=== PATIENT | female | born 1970 | race Caucasian/White ===

== ENCOUNTER 2022-04-22 15:37 | Outpatient (CLI) | payer MEDICAID, SELFPAY | END 2022-04-22 15:38 | disposition home or self-care (01) | LOC: LONREF 15:38 | PROVIDERS: PCP Family Medicine; Visit Provider Family Medicine | DX: Z13.29 Encounter for screening for other suspected endocrine disorder (principal) | CPT/HCPCS: 84443 ==

== ENCOUNTER 2023-02-08 10:05 | Outpatient (CLI) | payer BC, SELFPAY ==
--- NOTE | 2023-02-08 10:15 | CRLHL7_ITS ---
For Patients: As a result of the Century Cures Act, medical imaging exams and procedure reports are released immediately into your electronic medical record. You may view this report before your referring provider. If you have questions, please contact your health care provider. BILATERAL SCREENING MAMMOGRAM WITH COMPUTER-AIDED DETECTION AND TOMOSYNTHESIS TECHNIQUE: CC and MLO views were obtained. These mammographic images have been obtained using full-field digital technique. These mammographic images were interpreted with the benefit of computer-aided detection. Breast Tomosynthesis was used in this interpretation. COMPARISON FILM: 03/10/21, 09/03/19, 12/26/17. FINDINGS: There are scattered areas of fibroglandular density IMPRESSION: There is no radiographic evidence for malignancy. ASSESSMENT: BI-RADS Category 1: Negative RECOMMENDATION: Routine screening mammogram in 1 year. A lay language report of this examination will be provided to the patient. Robin Phoenix M.D. Diagnostic Radiologist [email or web address] ARSEN/Dictated by: Robin Phoenix MD @ 02/09/2023 12:14:00 PM (Electronically Signed)
== END 2023-02-08 10:06 | disposition home or self-care (01) ==
LOC: MAMMO 10:11
PROVIDERS: PCP Family Medicine; Visit Provider Obstetrics & Gynecology
DX: Z12.31 Encounter for screening mammogram for malignant neoplasm of breast (principal)
CPT/HCPCS: 77063; 77067

== ENCOUNTER 2023-02-20 11:23 | Outpatient (CLI) | payer BC, SELFPAY | END 2023-02-20 11:24 | disposition home or self-care (01) | PROVIDERS: PCP Family Medicine; Visit Provider Family Medicine | DX: Z00.00 Encounter for general adult medical examination without abnormal findings (principal); E55.9 Vitamin D deficiency, unspecified; E78.5 Hyperlipidemia, unspecified; R53.83 Other fatigue; R30.0 Dysuria; Z13.6 Encounter for screening for cardiovascular disorders; Z13.1 Encounter for screening for diabetes mellitus | CPT/HCPCS: 80053; 80061; 82306; 84443; 85025 ==

== ENCOUNTER 2023-08-20 22:02 | Emergency (ER) | payer BC, SELFPAY ==
[2023-08-20 22:11] VITALS: BP 150/101; PULSE 103; RESP 18; TEMP 36.9; O2SAT 97; BMI 30.7
--- NOTE | 2023-08-20 22:14 | ED.GENADULT ---
HPI - General Adult General Time Seen by Provider: 22:14 Date Seen: 08/20/23 Chief complaint: Cough Stated complaint: pneumonia Time Seen by Provider: 08/20/23 22:05 Source: patient, RN notes reviewed and old records reviewed Mode of arrival: ambulatory Limitations: no limitations History of Present Illness HPI narrative: 53-year-old female with history of allergic rhinitis, chronic pain, and asthma who comes in today with a cough. Started with allergy symptoms for the last week now with increasing chest tightness. No fever chills. Has been using albuterol every 4 hours, also [id number] decongestants. Does have some shortness of breath, no chest pain, no abdominal pain, no lower extremity swelling. Does have nasal congestion and headache, dry scratchy throat. Related Data Home Medications Medication Instructions Recorded Confirmed albuterol sulfate 2.5 mg/3 mL 2.5 mg inhalation Q4H PRN 01/17/22 08/18/23 (0.083 %) solution for nebulization aspirin 81 mg tablet,delayed 81 mg PO QDAY 01/17/22 08/18/23 release (Adult Aspirin Regimen) fluticasone propionate 50 2 spray intranasal QDAY 01/17/22 08/18/23 mcg/actuation nasal spray,suspension rizatriptan 10 mg tablet 10 mg PO .PRN 01/17/22 08/18/23 Previous Rx's Medication Instructions Recorded albuterol sulfate 90 mcg/actuation 2 puff inhalation Q4H PRN 11/21/22 aerosol inhaler (Ventolin HFA) shortness of breath or wheezing #8.5 grams atorvastatin 10 mg tablet 10 mg PO QHS #90 tabs 05/08/23 venlafaxine 150 mg 150 mg PO QDAY #90 caps 07/31/23 capsule,extended release 24 hr semaglutide (weight loss) 1 mg/0.5 1 mg (0.5 mL) subcut QWEEK #2 mL 08/15/23 mL subcutaneous pen injector dextroamphetamine-amphetamine 20 20 mg PO QDAY #30 tabs 08/18/23 mg tablet dextroamphetamine-amphetamine 20 20 mg PO QDAY #30 tabs 08/18/23 mg tablet (Adderall) dextroamphetamine-amphetamine 20 20 mg PO QDAY #30 tabs 08/18/23 mg tablet (Adderall) Allergies Allergy/AdvReac Type Severity Reaction Status Date / Time hydromorphone [From Dilaudid] Allergy Severe Vomiting Verified 08/18/23 14:32 methocarbamol Allergy Severe tongue Verified 08/18/23 14:32 swelling oxycodone Allergy Severe tongue Verified 08/18/23 14:32 swelling Sulfa (Sulfonamide Allergy Mild Hives Verified 08/18/23 14:32 Antibiotics) Review of Systems Status of ROS: Reports: 10 or more systems reviewed and unremarkable except as noted in History and below [facility] Medical History (Updated 08/20/23 @ 23:19 by Kai Funes MD) 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 - Other obesity due to excess calories (ICD-10) Mild intermittent asthma ?J45.20 - Mild intermittent asthma, uncomplicated (ICD-10) Calculus of kidney (02/03/13) ?N20.0 - Calculus of kidney (ICD-10) ADHD, 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 - Attention-deficit hyperactivity disorder, predominantly inattentive type (ICD-10) Allergic rhinitis ?J30.9 - Allergic rhinitis, unspecified (ICD-10) Hyperlipidemia ?E78.5 - Hyperlipidemia, unspecified (ICD-10) Hearing loss in left ear ?H91.92 - Unspecified hearing loss, left ear (ICD-10) Vitamin D deficiency ?E55.9 - Vitamin D deficiency, unspecified (ICD-10) Temporomandibular joint disorder ?M26.609 - Unspecified temporomandibular joint disorder, unspecified side (ICD-10) Pulmonary embolism (11/14/12) ?I26.99 - Other pulmonary embolism without acute cor pulmonale (ICD-10) Chronic fatigue syndrome ?G93.32 - Myalgic encephalomyelitis/chronic fatigue syndrome (ICD-10) Cerebral aneurysm ?I67.1 - Cerebral aneurysm, nonruptured (ICD-10) Anxiety with depression ?F41.8 - Other specified anxiety disorders (ICD-10) Goiter (02/19/09) ?E04.9 - Nontoxic goiter, unspecified (ICD-10) Surgical History S/P nasal polypectomy ?Z98.890 - Other specified postprocedural states (ICD-10) H/O rectocele repair ?Z98.890 - Other specified postprocedural states (ICD-10) S/P laparoscopic hysterectomy ?Z90.710 - Acquired absence of both cervix and uterus (ICD-10) S/P Milagro fundoplication (without gastrostomy tube) procedure ?Z98.890 - Other specified postprocedural states (ICD-10) History of hemorrhoidectomy (12/07/10) ?Z98.890 - Other specified postprocedural states (ICD-10) History of endometrial ablation (02/19/09) ?Z98.890 - Other specified postprocedural states (ICD-10) History of cholecystectomy (02/19/09) ?Z90.49 - Acquired absence of other specified parts of digestive tract (ICD-10) Family History (Updated 02/27/23 @ 00:28 by Robin Long MD) Mother Diabetes Maternal Grandfather Diabetes Uncle Diabetes Social History (Updated 02/20/23 @ 10:35 by Dahlia Moses ~ [facility], [facility]) What is your current living situation?: I presently have a place to live Problems where you live: no known problems In the past 12 months, utilities in danger of being shut off: no In past 12 months, lack of transportation kept you from medical appts, meetings, work, or getting things needed for daily living: no In the past 12 mos, have been you worried that your food would run out before you had money to buy more?: sometimes true In the past 12 mos, the food you bought just didn't last and you didn't have money to buy more?: never true Smoking Status: Former smoker Do you use any of these nicotine containing products: None Second hand tobacco smoke exposure: No How often do you have a drink containing alcohol: monthly or less How often do you have six or more drinks on one occasion: Never AUDIT-C Alcohol total score: 1 Non-prescribed substance use: denies use How often does anyone, including family, friends and others, physically hurt you: never How often does anyone, including family, friends and others, insult or talk down to you: fairly often How often does anyone, including family, friends and others, threaten you with harm: never How often does anyone, including family, friends and others, scream or curse at you: fairly often Little interest or pleasure in doing things: not at all Feeling down, depressed, or hopeless: not at all service: No Exam Narrative: Exam Narrative: General: Well-developed and well-nourished, no acute distress Head: Atraumatic and normocephalic Eyes: Pupils are equal reactive, extraocular motions intact, conjunctiva clear ENT: External nose and ears are normal, posterior pharynx without erythema or exudate Neck: No midline cervical tenderness, full spontaneous range of motion the neck, trachea midline, no adenopathy Heart: Regular rate and rhythm no murmurs or thrills Lungs: Clear to auscultation bilaterally without wheezes or crackles Abdomen: Soft, nontender, nondistended with active bowel sounds Musculoskeletal: No tenderness, deformity, or edema Neurologic: Awake, alert, and oriented x3, no gross focal neurologic deficits, cranial nerves intact as tested Psych: Mood and affect are appropriate Skin: No rashes Const: Vital Signs, click to edit/add: Vital Signs - 24 hr 08/20/23 22:11 08/20/23 23:23 Temperature 98.5 F 98.5 F Pulse Rate [Pulse Oximeter] 103 H 96 Respiratory Rate 18 18 Blood Pressure [Le ft Upper Arm] 150/101 H 138/86 Pulse Oximetry 97 99 Oxygen Delivery Me thod Room Air Room Air Course Course ED Course: Patient seen examined, prior records reviewed. Patient with history of asthma and pulmonary embolism, with upper respiratory symptoms and ongoing cough and chest tightness. On exam here, no hypoxia, borderline tachycardia, normal oxygen saturation. Trace coarse bronchial wheezes predominantly on the left, no crackles. Symptoms are most consistent with allergy verses viral upper respiratory infection with asthma exacerbation. Pulmonary embolism we considered but no pleuritic chest pain, lower extremity swelling, prior pulmonary embolism was related to hormone therapy which patient is not currently taking. Chest x-ray ordered along with DuoNeb. Reevaluation(s) Time of Reevaluation #1: 23:17 Reevaluation #1: Labs ordered and independently interpreted by me with negative COVID , negative influenza, negative RSV. Chest x-ray independently interpreted by me negative for acute findings. Time of Reevaluation #2: 23:19 Reevaluation #2: Reviewed radiology interpretation chest x-ray is mild cardiomegaly. Patient has no orthopnea, lower extremity swelling, crackles on exam, or evidence of pulmonary edema, congestive heart failure unlikely because patient's symptoms today. With nasal congestion, sore throat, cough, chest tightness and history of asthma, symptoms most likely represent viral process. Patient updated with findings and plan. Minimal improvement after nebulizer treatment, lungs reexamined and still no wheezing or crackles. Patient is stable for discharge. Vital Signs Vital signs: Initial Vital Signs Temperature 98.5 F 08/20/23 22:11 Temperature Source Temporal Artery Scan 08/20/23 22:11 Pulse Rate 103 H 08/20/23 22:11 Pulse Rhythm Regular 08/20/23 22:11 Respiratory Rate 18 08/20/23 22:11 Blood Pressure 150/101 H 08/20/23 22:11 Blood Pressure Mean 117 H 08/20/23 22:11 Blood Pressure Position Sitting 08/20/23 22:11 Pulse Oximetry 97 08/20/23 22:11 Oxygen Delivery Method Room Air 08/20/23 22:11 Vital Signs Temperature 98.5 F 08/20/23 22:11 Pulse Rate 103 H 08/20/23 22:11 Respiratory Rate 18 08/20/23 22:11 Blood Pressure 150/101 H 08/20/23 22:11 Pulse Oximetry 97 08/20/23 22:11 Oxygen Delivery Method Room Air 08/20/23 22:11 Temperature 98.5 F 08/20/23 23:23 Pulse Rate 96 08/20/23 23:23 Respiratory Rate 18 08/20/23 23:23 Blood Pressure 138/86 08/20/23 23:23 Pulse Oximetry 99 08/20/23 23:23 Oxygen Delivery Method Room Air 08/20/23 23:23 Medications Administered Medications: Generic Name Dose Route Start Last Admin Trade Name Freq PRN Reason Stop Dose Admin Albuterol/Ipratropium 1 neb 08/20/23 22:39 08/20/23 22:45 Iprat-Albut 0.5-2.5 Mg/3 Ml Neb 08/20/23 22:40 1 neb ONCE ONE Administration Medical Decision Making Medical Records Medical records reviewed: Yes I reviewed the patient's medical records Lab Data Lab results reviewed: Yes I reviewed the patient's lab results Labs: Lab Results 08/20/23 Range/Units 22:25 SARS-CoV-2 (PCR) Negative SARS-CoV-2 (Negative) Influenza Type A (PCR) Negative PCR FLU A (Negative) Influenza Type B (PCR) Negative PCR FLU B (Negative) RSV (PCR) Negative PCR RSV (Negative) Discharge Plan Discharge Clinical Impression: Acute upper respiratory infection Patient Disposition: Home, Self-Care Condition: Stable Instructions: Upper Respiratory Infection (DC) Activity Level: Activity as Tolerated Discharge Diet: Regular Prescriptions: No Action dextroamphetamine-amphetamine [Adderall] 20 mg tablet 20 mg PO QDAY Qty: 30 0RF dextroamphetamine-amphetamine [Adderall] 20 mg tablet 20 mg PO QDAY Qty: 30 0RF dextroamphetamine-amphetamine 20 mg tablet 20 mg PO QDAY Qty: 30 0RF albuterol sulfate [Ventolin HFA] 90 mcg/actuation HFA aerosol inhaler 2 puff inhalation Q4H PRN (Reason: shortness of breath or wheezing) Qty: 8.5 0RF aspirin [Adult Aspirin Regimen] 81 mg tablet,delayed release (DR/EC) 81 mg PO QDAY fluticasone propionate 50 mcg/actuation spray,suspension 2 spray intranasal QDAY Rx Instructions: administer into each nostril rizatriptan 10 mg tablet 10 mg PO .PRN Rx Instructions: as a single dose albuterol sulfate 2.5 mg /3 mL (0.083 %) solution for nebulization 2.5 mg inhalation Q4H PRN atorvastatin 10 mg tablet 10 mg PO QHS Qty: 90 2RF venlafaxine 150 mg capsule,extended release 24hr 150 mg PO QDAY Qty: 90 0RF semaglutide (weight loss) 1 mg/0.5 mL pen injector 1 mg subcut QWEEK Qty: 2 0RF Follow Up/Referrals: Robin Long MD [Primary Care Provider] - Stand Alone Forms: [employer] Info Instructions
--- NOTE | 2023-08-20 22:39 | XR_ITS ---
Patient: FLACO ROB Facility:?[facility] Patient ID:?[id number] Site Patient ID:?[id number]. Site :?[id number] Study:?XRay-Chest 2 VIEW-08/20/2023 11:03:46 PM Ordering Physician:NEL Final Report: INDICATION: Cough, dyspnea TECHNIQUE: Chest radiograph 2 views COMPARISON: None FINDINGS: Mediastinum: The mediastinum is normal in appearance. Mild cardiomegaly is present. Lung: Both lungs are unremarkable in appearance. No sign of pleural effusion seen. No pneumothorax is identified. Bone and Soft tissue: Unremarkable for age. IMPRESSION: 1. Mild cardiomegaly is present. Dictated by Soham Leal MD @ 08/20/2023 11:18:58 PM Dictated by: Soham Leal MD @ 08/20/2023 23:19:03 Signed by:?Soham Leal MD @08/20/2023 11:19:03 PM (Electronic Signature)
[2023-08-20] MEDS: IPRAT-ALBUT 0.5-2.5 MG/3 ML NEB 1 NEB IH (22:45)
[2023-08-20 23:11] LABS: PCR FLU A Negative PCR FLU A (Negative); PCR FLU B Negative PCR FLU B (Negative); PCR RSV Negative PCR RSV (Negative); SARS PCR* Negative SARS-CoV-2 (Negative)
[2023-08-20 23:23] VITALS: BP 138/86; PULSE 96; RESP 18; TEMP 36.9; O2SAT 99
--- NOTE | 2023-08-20 23:24 | PC.NURSE ---
Pt states she feels as though neb treatment didn't help very much. still feels tight.
== END 2023-08-20 23:41 | disposition home or self-care (01) ==
PROVIDERS: Emergency Provider Family Medicine; PCP Family Medicine
DX: J06.9 Acute upper respiratory infection, unspecified (principal)
CPT/HCPCS: 71046; 87631; 94640; 99284

== ENCOUNTER 2023-09-06 12:54 | Outpatient (CLI) | payer BC, SELFPAY ==
--- NOTE | 2023-09-06 13:00 | CRLHL7_ITS ---
For Patients: As a result of the Century Cures Act, medical imaging exams and procedure reports are released immediately into your electronic medical record. You may view this report before your referring provider. If you have questions, please contact your health care provider. INDICATION: Bilateral hearing loss. COMPARISON: 01/14/2021. TECHNIQUE: Multiplanar T1, T2, FLAIR and diffusion-weighted imaging. Post gadolinium T1 weighted sequences. Additional pre and post given sequences of the skullbase and IAC`s. FINDINGS: Normal brain parenchymal morphology. Stable few scattered patchy foci of T2/FLAIR signal hyperintensity within the white matter of both cerebral hemispheres which likely represents chronic deep white matter small ischemic changes or sequela migraine headache. No intracranial hemorrhage. No abnormal ventricular dilatation. Intracranial vascular flow voids preserved. No mass effect or midline shift. No restricted diffusion to suggest acute ischemia. No abnormal enhancement or enhancing lesions within the brain parenchyma. Dedicated sequence of the skullbase and IAC`s demonstrates normal course of cranial nerves 7 and 8 from the root entry zone to the fundus of the IAC`s. Normal fluid signal within the cochlea and vestibule. Normal root entry zone of the bilateral trigeminal nerves. No abnormal mass or enhancement within cerebellopontine angles or IAC`s. Bilateral orbits are unremarkable. Normal appearing sella. Visualized mastoid air cells are unremarkable. Mucous retention cyst within the bilateral mastoid sinuses. Remaining visualized paranasal sinuses are unremarkable. IMPRESSION: 1. No acute intracranial abnormality 2. Normal brain parenchymal morphology. Scattered patchy T2/FLAIR signal hyperintensity within the white matter of both cerebral hemispheres which likely represents chronic deep white matter small vessel ischemic changes or sequela of migraine headache. 3. No abnormal enhancement or enhancing lesions 4. Dedicated sequences of the skull base nice ease demonstrates normal course of the cranial nerves. No abnormal mass or enhancement Dictated by Charan Jean MD @ 09/07/2023 1:05:36 PM (Electronically Signed)
== END 2023-09-06 12:55 | disposition home or self-care (01) ==
LOC: MRI 12:55
PROVIDERS: PCP Family Medicine; Visit Provider Otolaryngology
DX: H91.8X3 Other specified hearing loss, bilateral (principal)
CPT/HCPCS: 70553; A9575

== ENCOUNTER 2023-10-06 15:57 | Outpatient (CLI) | payer BC, SELFPAY ==
--- NOTE | 2023-10-06 16:00 | CRLHL7_ITS ---
For Patients: As a result of the Century Cures Act, medical imaging exams and procedure reports are released immediately into your electronic medical record. You may view this report before your referring provider. If you have questions, please contact your health care provider. Indication: ANOSMIA Technique: Performed without IV contrast Comparison: MRI 09/06/2023 Findings: Frontal sinuses: Clear. Ethmoid sinuses: Clear. Maxillary sinuses: Mucous retention cysts within both maxillary sinuses measuring up to 3 cm. Mild mucosal thickening also present on the right. Maxillary sinus drainage pathways are patent. Sphenoid sinuses: Both sphenoethmoidal recesses are patent. Mild mucosal thickening within the left sphenoid sinus along with a tiny mucous retention cyst. Nasal Cavity: Slight anterior leftward curvature of the nasal septum. Paradoxical turns of the middle turbinates noted with tiny jourdan bullosa. No nasal polyps. No TMJ abnormalities identified. The visualized portions of the orbits, intracranial contents and upper soft tissue neck are grossly negative. Impression: 1. Bilateral mucous retention cysts within the maxillary sinuses. No obstruction regarding the maxillary sinus drainage pathways. 2. Mild left sphenoid sinus disease. Please note that all CT scans at this facility use dose modulation, iterative reconstruction, and/or weight-based dosing when appropriate to reduce radiation dose to as low as reasonably achievable. Dictated by Robin Phoenix MD @ 10/09/2023 9:26:41 AM (Electronically Signed)
== END 2023-10-06 15:58 | disposition home or self-care (01) ==
LOC: CT 15:57
PROVIDERS: PCP Family Medicine; Visit Provider Otolaryngology
DX: R43.0 Anosmia (principal); J32.0 Chronic maxillary sinusitis
CPT/HCPCS: 70486

== ENCOUNTER 2024-07-23 15:43 | Emergency (ER) | payer SELFPAY ==
--- OUTSIDE RECORDS SUMMARY | 2024-07-23 15:45 | XMS_ITS | Clinical Summary ---
Author Organization [facility] Address [address] [place] [phone] Phone Care Team Providers Care Mobile Web Application Developer Name Role Phone Emre Ross MD Primary Care Provider [phone] Allergies Active Allergy Reactions Criticality Noted Date Comments Hydromorphone Vomiting High 12/18/2019 Methocarbamol Swelling High 12/18/2019 Tongue swelling Oxycodone Psychiatric 12/18/2019 Psychotic episode Sulfa Antibiotics Hives 12/18/2019 Medications albuterol (2.5 MG/3ML) 0.083% nebulizer solution Take 2.5 mg by nebulization every 4 (four) hours if needed for wheezing Active fluticasone (FLONASE) 50 MCG/ACT nasal spray Administer 1 spray into each nostril 1 (one) time each day Shake gently. Before first use, prime pump. After use, clean tip and replace cap. Active rizatriptan (MAXALT) 10 MG tablet Take 10 mg by mouth twice a day May repeat in 2 hours if unresolved. Do not exceed 30 mg in 24 hours. Active venlafaxine XR (EFFEXOR-XR) 150 MG 24 hr capsule Take 150 mg by mouth 1 (one) time each day Active amphetamine-dex troamphetamine (ADDERALL) 10 MG tablet Take 10 mg by mouth 1 (one) time each day Active Cholecalciferol (VITAMIN D3) 125 MCG (5000 UT) tablet Take 1 tablet by mouth 1 (one) time each day Active clonazePAM (KlonoPIN) 1 MG tablet Take 1 mg by mouth 1 (one) time each day Active Active Problems No known active problems Social History Tobacco Use Types Packs/Day Years Used Date Smoking Tobacco: Former Cigarettes Q uit: 1995 Alcohol Use Standard Drinks/Week Comments Yes 0 (1 standard drink = 0.6 oz pur e alcohol) Comments Unknown Sex and Gender Information Value Date Recorded Sex Assigned at Female 04/06/2021 4:49 AM MST Legal Sex Female 8:12 AM MDT Gender Identity Female 04/06/2021 4:49 AM MST Sexual Orientation Straight 04/06/2021 4: 49 AM MST Last Filed Vital Signs Vital Sign Reading Time Taken Comments Blood Pressure 145/93 12/19/2019 10:25 AM CDT Pulse 68 12/19/2019 10:25 AM CDT Temperature 36.4 C (97.6 F) 12/19/2019 10:25 AM CDT Respiratory Rate - - Oxygen Saturation - - Inhaled Oxygen Concentration - - Weight 84.1 kg (185 lb 6.4 oz) 12/19/2019 10:25 AM CDT Height 167.6 cm (5' 6) 12/19/2019 10:25 AM CDT Body Mass Index 29.92 12/19/2019 10:25 AM CDT Plan of Treatment Health Maintenance Due Date Last Done Comments Influenza Vaccine (Season Ended) 2024 Insurance PM [employer] Care Teams Mobile Web Application Developer Relationship Specialty Start Date End Date Emre Ross MD [address] [place] [id number] PCP - General 12/03/19
--- OUTSIDE RECORDS SUMMARY | 2024-07-23 15:45 | XMS_ITS | Clinical Summary ---
Author Organization [facility] Address [address] [place] [id number] Care Team Providers Care Psychodramatist Name Role Phone Emre Ross MD Primary Care Provider [phone] Allergies Active Allergy Reactions Criticality Noted Date Comments Sulfa (Sulfonamide Antibiotics) 06/2004 Medications ACETAMINOPHEN-C ODEINE 300 MG-30 MG ORAL TAB None Entered 0 Active ALBUTEROL INHL NEEDED 0 Activ e ACETAMINOPHEN 325 MG ORAL TAB take 2 tablets by mouth every 4hours as needed for pain ? 0 5 Active PHENAZOPYRIDINE 200 MG ORAL TAB 1 tablet by mouth every 8hr as needed for dysuria ? 0 5 Active tirzepatide (Mounjaro) 5 mg/0.5 mL pen Inject 5 mg subcutaneous once weekly. 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 Gender Identity Female 07/03/2023 4:24 PM CDT Sexual Orientation Not on file Obstetrics History Last Filed Vital Signs Vital Sign Reading Time Taken Comments Blood Pressure 134/89 11/10/2004 9:30 PM CDT Pulse 72 11/10/2004 9:30 PM CDT Temperature 36.1 C (97 F) 11/10/2004 9:30 PM CDT Respiratory Rate 16 11/10/2004 9:30 PM CDT Oxygen Saturation 100% 11/10/2004 9:30 PM CDT Inhaled Oxygen Concentration - - Weight 60.9 kg (134 lb 4.2 oz) 11/10/2004 4:00 P M CDT Height 167 cm (5' 5.75) 11/10/2004 4:00 PM CDT Body Mass Index 21.84 11/10/2004 4:00 PM CDT Plan of Treatment Health Maintenance Due Date Last Done Comments Tdap 1979 Depression screening for age 12+ 1980 HIV for age 15-65 1983 BMI (ht and wt on same day) for age 18+ 1986 Hepatitis C screening for ag e 18-79 1986 Tetanus booster 1988 Colonoscopy through age 75 2013 Lipids for age 45-75 2013 Mammogram for age 45-75 2013 Pneumococcal series for age 50+ (1 of 1 - PCV) 2018 Zoster (shingles) series for age 50+ (1 of 2) 2018 Pap test for age 21-65 10/09/2020 8, 10/09/2017, 04/26/2005, Additional history exists COVID-19 vaccine series ( - 2023- season) 2023 Influenza Vaccine (Season Ended) 2024 Procedures Procedure Name Priority Date/Time Associated Diagnosis Comments MARBLE MACHINE TENDER THIN PREP PAP SCREEN IMAGED Routine 10/09/2017 11:15 AM CDT from Last 3 Months or Most Recently Relevant to Health Maintenance Results * MARBLE MACHINE TENDER THIN PREP PAP SCREEN IMAGED (10/09/2017 11:15 AM CDT) Case Report Gynecologic Cytology Report Case: [id number] Authorizing Provider: Jackie Olivo MD Collected: 10/09/2017 1115 First Screen: Yancy Singh Received: 10/09/2017 1602 Specimen: MARBLE MACHINE TENDER ThinPrep Vial Screening, Cervical/Vaginal 10/19/2017 12:09 PM CDT [facility] INTERPRETATION/ RESULT NEGATIVE FOR INTRAEPITHELIAL LESION OR MALIGNANCY (NIL) (none) 10/19/2017 12:09 PM CDT [facility] at 1209 CDT SPECIMEN ADEQUACY Satisfactory for evaluation Endocervical component present 10/19/2017 12:09 PM CDT [facility] HPV REQUEST HPV and PAP 10/19/2017 12:09 PM CDT [facility] Date of LMP 09/28/2017 10/19/2017 12:09 PM CDT [facility] Last Pap Date 12/19/2011 10/19/2017 12:09 PM CDT [facility] Last Pap Result NIL 8 12:09 PM CDT [facility] Automated Review Successful 10/19/2017 12:09 PM CDT [facility] Comment:Specimen processed s uccessfully by automated crane rigger device, ThinPrep Imaging System, [employer] ANCILLARY TESTING MARBLE MACHINE TENDER HPV Ordered, Please see separate report 10/19/2017 12:09 PM CDT [facility] Note The pap test is a screening technique, not a diagnostic procedure. It is used primarily to screen for squamous cancers and precursor lesions. Published studies have shown that it is subject to both false negative and false positive results. The pap test should not be used as the sole means to diagnose or exclude pre-malignant and malignant lesions. Cytology is screened and interpreted at [facility] - [address], [place] [address] and [facility] - [address]; [place] [address] and [facility] - [address]; [place] [address] and [facility] [address]; [place] [address] 10/19/2017 12:09 PM T [facility] Other (Cervical/Vagina l) 10/09/2017 11:15 AM CDT 10/09/2017 4:02 PM CDT us Jackie Olivo MD PATHOLOGY/CYTOLOGY Final Res ult [facility] [address] [place] [address], from Last 3 Months or Most Recently Relevant to Health Maintenance Insurance [facility] Care Teams Psychodramatist Relationship Specialty Start Date End Date Emre Ross MD [address] [place] [address] PCP - General Family Practice 05/28/20
--- OUTSIDE RECORDS SUMMARY | 2024-07-23 15:45 | XMS_ITS | Clinical Summary ---
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 05/27 Nella BRAVO-Ty Aneurysm of cerebral artery Cerebrovascu lar disease [id number] (SNOMED CT) 05/11 Active 05/11 Abel Briseno MD Cerebrovascular disease Visual changes [id number] (SNOMED CT) 05/11 Active 05/11 Abel Briseno MD Disorder of vision Migraine without aura [id number] (SNOMED CT) 07/03 Active 07/29 Diane Lucas MD Migraine without aura Medications Medication Instructions Start Date Stop Date Generic Name [facility] Provider METAXALONE 800 MG TABS metaxalone [id number] Abel Briseno MD OMEPRAZOLE 20 MG CPDR TK 1 C PO BID omeprazole [id number] Abel Briseno MD GABAPENTIN 300 MG CAPS TK 1 C PO TID gabapentin 84795994438 Abel Briseno MD VICODIN TABS VICODIN TABS Abel Briseno MD ESCITALOPRAM OXALATE 20 MG TABS TK 1 T PO QD escitalopram oxalate [id number] Abel Briseno MD VENLAFAXINE HCL ER 150 MG [id number] TAKE 1 CAPSULE BY MOUTH DAILY venlafaxine 86401374067 Abel Briseno MD ADDERALL XR 10 MG [id number] dextroamphetami ne-amphetamine 89342424193 Abel Briseno MD ATORVASTATIN CALCIUM 10 MG TABS atorvastatin 08192213766 Abel Briseno MD CELECOXIB 200 MG CAPS TAKE 1 CAPSULE BY MOUTH TWICE DAILY celecoxib 06624061071 Abel Briseno MD VICODIN TABS HYDROCODONE-YESICA TAMINOPHEN TABS [id number] Diane Lucas MD METAXALONE 800 MG TABS METAXALONE 30752026172 Diane Lucas MD OMEPRAZOLE 20 MG CPDR TK 1 C PO BID OMEPRAZOLE 68457181721 Diane Lucas MD ESCITALOPRAM OXALATE 20 MG TABS TK 1 T PO QD ESCITALOPRAM OXALATE 35849190073 Diane Lucas MD GABAPENTIN 300 MG CAPS TK 1 C PO TID GABAPENTIN 54283614948 Diane Lucas MD Medications Administered No information available. Allergies, Adverse Reactions, Alerts Allergy Name Reaction Description Start Date Severity Statu s Provider METHOCARBAMOL Severe Active Rahul Briseno MD OXYCODONE HCL Severe Active Rahul Briseno MD HYDROMORPHONE HCL severe vomiting Severe Activ e Diane Lucas MD SULFA hives Moderate Active Diane aburto MD Results Date Name Value Unit Range Flag Description Office Visit: mail SMOK STATUS Former smoker Tob acco smoking status Internal Other: Authorizatio n - OBS PTSTAUTHDT DONE PT Startin g Authorization Date Internal Other: Verbal Autho rization/Emergency Contact - OBS VERBAL_EMER DONE Verbal au thorization and emergency contact Internal Other: Authorizatio n - OBS [id number] Yes GE use only - for [employer] import when terms are not otherwise specified HIECONSENT Yes Consent To Release information to the Health Information Exchange (HIE) Telemedicine: JANIS Follow Up mail MEDS REVIEW Done Documenta tion of current medications (procedure) Plan of Care Type Date Detail Pending order Other Referral Pending order Other Referral Pending order MRA-Neck W/WO Pending order Echocardiogram C omplete with Bubble w/o Contrast Pending order MRA-Head W/O Pending order Obtain outside r ecords Pending order MRA-Neck W/O Pending order MRA-Neck W/O Pending Order exclud ed from report: Pending order Follow up JANIS af ter testing Procedures Code Procedure Name Date Entry Date ORDERS Follow up JANIS after testing [id number] MRA-Head W/O [id number] MRA-Neck W/WO ORDERS Echocardiogram Compl ete with Bubble w/o Contrast ORDERS Obtain outside records 03/10 [facility]-[id number] Documentation of current medicatio ns [id number] MRA-Neck W/O Vital Signs Date Name Value Unit Description Height 66 [in_us] height E&M BMI (Body Mass Index) 30.62 kg/m2 Bod y Mass Index (Ratio) Weight Measured 85.91 kg weight in kilograms E&M Weight Measured 189 [lb_av] weight E& M Weight Measured 189 [lb_av] weight E& M BP Diastolic 74 mm[Hg] blood pressu re, diastolic BP Systolic 11 mm[Hg] blood pressur e, systolic Heart Rate 66 /min pulse rate Immunizations No information available. Advance Directives No information available.
[2024-07-23 16:05] VITALS: BP 163/103; PULSE 86; RESP 20; TEMP 36.1; O2SAT 99; BMI 30.7
--- NOTE | 2024-07-23 16:23 | CRLHL7_ITS ---
For Patients: As a result of the Century Cures Act, medical imaging exams and procedure reports are released immediately into your electronic medical record. You may view this report before your referring provider. If you have questions, please contact your health care provider. INDICATION: Flank pain. History of kidney stones. COMPARISON: 11/28/2017 CT abdomen/pelvis TECHNIQUE: CT of the abdomen and pelvis without intravenous contrast. FINDINGS: Please note that absence of intravenous contrast limits evaluation of soft tissue and vascular structures. Lung bases: No pleural effusion. Liver: Smooth hepatic contour. Gallbladder and biliary tree: Status post cholecystectomy. Spleen: No splenomegaly. Pancreas: Unremarkable noncontrast CT appearance. Adrenal glands: Normal. Kidneys and ureters: No hydroureteronephrosis. No right renal calculus. There is a nonobstructing 5 millimeter left lower pole renal calculus and a nonobstructing 3 millimeter left interpolar renal calculus. No ureteric calculus. Bladder: 4 millimeter calculus within the left paramidline dependent bladder. The bladder is nondistended. Visualized reproductive organs: Status post hysterectomy. Gastrointestinal tract: No focal abnormally dilated loops of bowel. Normal appendix. Status post gastric fundoplication. There is a 15 millimeter focus of well-circumscribed fat with a small amount of associated fat stranding immediately anterior to the sigmoid colon compatible with a torsed epiploic appendage which is new since 11/28/2017, but otherwise age indeterminate (). Peritoneal cavity: No free fluid or free air. Lymph nodes: No enlarged abdominal or pelvic lymph nodes by CT size criteria. Vessels: No abdominal aortic aneurysm. Abdominal and pelvic wall: Normal. Bones: There are osseous degenerative changes. IMPRESSION: 1. No obstructing urinary tract calculus. Two small nonobstructing left renal calculi and single small nonobstructing calculus in the left para midline dependent bladder. 2. There is a 15 millimeter focus of well-circumscribed fat with a small amount of associated fat stranding immediately anterior to the sigmoid colon compatible with a torsed epiploic appendage which is new since 11/28/2017, but otherwise age indeterminate. Please note that all CT scans at this facility use dose modulation, iterative reconstruction, and/or weight-based dosing when appropriate to reduce radiation dose to as low as reasonably achievable. Dictated by Jean Paul Dahl MD @ 07/23/2024 6:19:20 PM (Electronically Signed)
--- NOTE | 2024-07-23 16:27 | ED_ITS ---
HPI - General Adult General Date Seen: 07/23/24 Chief complaint: Flank Pain Stated complaint: kidney stone Time Seen by Provider: 07/23/24 16:11 History of Present Illness HPI narrative: Patient is a 54-year-old woman with a remote history of kidney stones, she noted hematuria this morning along with some pressure, a sensation of needing to void, but no dysuria. A couple of hours ago she noted some flank and low back pain which is moderate to severe in intensity. She has not had any nausea or vomiting, denies any fever chills. No abdominal pain. Feels similar to prior kidney stone. Patient denied other medical history but I note she has a history of cerebral aneurysm which is being followed, also history of PE when on hormone therapy, not currently anticoagulated. Related Data Home Medications ?Medication ?Instructions ?Recorded ?Confirmed albuterol sulfate 2.5 mg/3 mL 2.5 mg inhalation Q4H PRN 01/17/22 07/23/24 (0.083 %) solution for nebulization aspirin 81 mg tablet,delayed 81 mg PO QDAY 01/17/22 07/23/24 release (Adult Aspirin Regimen) fluticasone propionate 50 2 spray intranasal QDAY 01/17/22 07/23/24 mcg/actuation nasal spray,suspension rizatriptan 10 mg tablet 10 mg PO .PRN 01/17/22 07/23/24 semaglutide (weight loss) 1.7 1.7 mg subcut 07/23/24 mg/0.75 mL subcutaneous pen injector (Wegovy) semaglutide (weight loss) 2.4 2.4 mg subcut 07/23/24 mg/0.75 mL subcutaneous pen injector (Wegovy) Previous Rx's ?Medication ?Instructions ?Recorded albuterol sulfate 90 mcg/actuation 2 puff inhalation Q4H PRN 11/21/22 aerosol inhaler (Ventolin HFA) shortness of breath or wheezing #8.5 grams dextroamphetamine-amphetamine 20 20 mg PO QDAY #30 tabs 08/18/23 mg tablet (Adderall) metaxalone 800 mg tablet 800 mg PO QHS PRN muscle pain #20 10/24/23 tabs atorvastatin 10 mg tablet 10 mg PO QHS #90 tabs 04/23/24 venlafaxine 150 mg 150 mg PO QDAY #90 caps 04/23/24 capsule,extended release 24 hr Allergies Allergy/AdvReac Type Severity Reaction Status Date / Time hydromorphone (From Dilaudid) Allergy Severe Vomiting Verified 07/23/24 16:03 methocarbamol Allergy Severe tongue Verified 07/23/24 16:03 swelling oxycodone Allergy Severe tongue Verified 07/23/24 16:03 swelling Sulfa (Sulfonamide Allergy Mild Hives Verified 07/23/24 16:03 Antibiotics) Review of Systems Status of ROS: Reports: 10 or more systems reviewed and unremarkable except as noted in History and below [facility] Medical History Narcolepsy ?G47.419 - Narcolepsy without cataplexy (ICD-10) 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 - Other obesity due to excess calories (ICD-10) Mild intermittent asthma ?J45.20 - Mild intermittent asthma, uncomplicated (ICD-10) Calculus of kidney (02/03/13) ?N20.0 - Calculus of kidney (ICD-10) ADHD, 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 - Attention-deficit hyperactivity disorder, predominantly inattentive type (ICD-10) Allergic rhinitis ?J30.9 - Allergic rhinitis, unspecified (ICD-10) Hyperlipidemia ?E78.5 - Hyperlipidemia, unspecified (ICD-10) Hearing loss in left ear ?H91.92 - Unspecified hearing loss, left ear (ICD-10) Vitamin D deficiency ?E55.9 - Vitamin D deficiency, unspecified (ICD-10) Temporomandibular joint disorder ?M26.609 - Unspecified temporomandibular joint disorder, unspecified side (ICD-10) Pulmonary embolism (11/14/12) ?I26.99 - Other pulmonary embolism without acute cor pulmonale (ICD-10) Chronic fatigue syndrome ?G93.32 - Myalgic encephalomyelitis/chronic fatigue syndrome (ICD-10) Cerebral aneurysm ?I67.1 - Cerebral aneurysm, nonruptured (ICD-10) Anxiety with depression ?F41.8 - Other specified anxiety disorders (ICD-10) Goiter (02/19/09) ?E04.9 - Nontoxic goiter, unspecified (ICD-10) Surgical History S/P nasal polypectomy ?Z98.890 - Other specified postprocedural states (ICD-10) H/O rectocele repair ?Z98.890 - Other specified postprocedural states (ICD-10) S/P laparoscopic hysterectomy ?Z90.710 - Acquired absence of both cervix and uterus (ICD-10) S/P Milagro fundoplication (without gastrostomy tube) procedure ?Z98.890 - Other specified postprocedural states (ICD-10) History of hemorrhoidectomy (12/07/10) ?Z98.890 - Other specified postprocedural states (ICD-10) History of endometrial ablation (02/19/09) ?Z98.890 - Other specified postprocedural states (ICD-10) History of cholecystectomy (02/19/09) ?Z90.49 - Acquired absence of other specified parts of digestive tract (ICD- 10) Family History Mother Diabetes Maternal Grandfather Diabetes Uncle Diabetes Social History What is your current living situation?: I presently have a place to live Problems where you live: no known problems In the past 12 months, utilities in danger of being shut off: no In past 12 months, lack of transportation kept you from medical appts, meetings, work, or getting things needed for daily living: no In the past 12 mos, have been you worried that your food would run out before you had money to buy more?: sometimes true In the past 12 mos, the food you bought just didn't last and you didn't have money to buy more?: never true Smoking Status: Former smoker Do you use any of these nicotine containing products: None Second hand tobacco smoke exposure: No How often do you have a drink containing alcohol: monthly or less How often do you have six or more drinks on one occasion: Never AUDIT-C Alcohol total score: 1 Non-prescribed substance use: denies use How often does anyone, including family, friends and others, physically hurt you : never How often does anyone, including family, friends and others, insult or talk down to you: fairly often How often does anyone, including family, friends and others, threaten you with harm: never How often does anyone, including family, friends and others, scream or curse at you: fairly often service: No Health Related Social Needs: food insecurity (Z59.41) and Other personal risk factors, not elsewhere classified (Z91.89) Exam Narrative: Exam Narrative: Vital signs reviewed In general, alert, nontoxic manage woman. She is rocking back and forth on the bed. Head: Normocephalic, atraumatic. Eyes: Sclera clear. Pupils equal and reactive. ENT: Mucous membranes moist. Neck: Supple without adenopathy. Heart: Regular rate and rhythm without murmur. Lungs: Clear. No increased work of breathing, crackles or wheezes. Abdomen: Soft, nontender to palpation. Back: No CVA tenderness. Extremities: Well perfused, pulses intact. No significant edema. Neurologic: Alert, conversant. Speech fluent, face symmetric. Moves all extremities equally. Skin: Warm, dry well perfused. Affect: Normal. Const: Vital Signs, click to edit/add: Vital Signs - 24 hr 07/23/24 16:05 Temperature 97.0 F L Pulse Rate [Pulse Oximeter] 86 Respiratory Rate 20 Blood Pressure [Ri ght Upper Arm] 163/103 H Pulse Oximetry 99 Oxygen Delivery Me thod Room Air Course Course ED Course: Will place an IV, give Toradol, 4 mg of morphine, 4 mg of Zofran, L of normal saline. Diagnostic considerations would include kidney stone, pyelonephritis, UTI, diverticulitis, musculoskeletal back pain, among others. CT scan without contrast ordered as well as routine labs and urinalysis. Pain initially improved with medications although she did have recurrence of pain, and she also reported more left-sided abdominal pain, requiring additional medications. CBC reviewed and notable for a normal white blood cell count. Urinalysis was notable for 10-25 red cells and 10-[address] scan by my review did not show significant hydronephrosis, she did have a stone in the bladder and had some stones in the left kidney. I reviewed the radiology report, they noted the stone in the bladder and stones in the kidney, no significant hydronephrosis. They also noted epiploic appendagitis near the sigmoid colon. This was of indeterminate age but new since her most recent CT scan. Given that her pain has not resolved despite passage of a kidney stone, I suspect this epiploic appendagitis is in fact noon is more responsible for her current pain. The hematuria she saw was likely related to the kidney stone that she seems to have passed. Given that she does not have a current stone nor any hydronephrosis, and does not have any current urinary symptoms, I a.m. going to hold off on treating the abnormal UA, discussed with her if she develops symptoms of UTI or has fever chills etcetera that we could go ahead and start antibiotics. Otherwise, will await the culture and see how she is feeling. For the epiploic appendagitis, discussed the diagnosis and that it is typically self limited. I prescribed initially tramadol for her, she said that that upsets her stomach, but she tolerates Vicodin. Therefore, I gave her [place], 8 tablets. I have asked her to use ibuprofen 400 mg 3 times daily with food for baseline pain control. Primary care follow-up if not gradually improving over the next few days, discussed reasons to return such as severe uncontrolled pain, fevers, vomiting, or other worsening. Vital Signs Vital signs: Initial Vital Signs Temperature 97.0 F L 07/23/24 16:05 Temperature Source Temporal Artery Scan 07/23/24 16:05 Pulse Rate 86 07/23/24 16:05 Respiratory Rate 07/23/24 16:05 Blood Pressure 163/103 H 07/23/24 16:05 Blood Pressure Mean 123 H 07/23/24 16:05 Pulse Oximetry 99 07/23/24 16:05 Oxygen Delivery Method Room Air 07/23/24 16:05 Vital Signs Temperature 97.0 F L 07/23/24 16:05 Pulse Rate 86 07/23/24 16:05 Respiratory Rate 20 07/23/24 16:05 Blood Pressure 163/103 H 07/23/24 16:05 Pulse Oximetry 99 07/23/24 16:05 Oxygen Delivery Method Room Air 07/23/24 16:05 Temperature 97.0 F L 07/23/24 16:05 Pulse Rate 86 07/23/24 16:05 Respiratory Rate 20 07/23/24 16:05 Blood Pressure 163/103 H 07/23/24 16:05 Pulse Oximetry 99 07/23/24 16:05 Oxygen Delivery Method Room Air 07/23/24 16:05 Medications Administered Medications: Discontinued Medications Generic Name Dose Route Start Last Admin Trade Name Bennieq PRN Reason Stop Dose Admin Sodium Chloride 1,000 mls @ 1,000 mls/hr 07/23/24 16:30 07/23/24 18:02 0.9 % Sodium Chloride 1000 Ml IV 07/23/24 17:29 Infused .Q1H DEVIKA Infusion Ketorolac Tromethamine 15 mg 07/23/24 16:22 07/23/24 16:33 Ketorolac 15 Mg/Ml Inj IVP 07/23/24 16:23 15 mg ONCE ONE Administration Morphine Sulfate 4 mg 07/23/24 16:22 07/23/24 16:34 Morphine 4 Mg/Ml Inj IVP 07/23/24 16:23 4 mg ONCE ONE Administration Morphine Sulfate 4 mg 07/23/24 18:43 07/23/24 19:14 Morphine 4 Mg/Ml Inj IVP 07/23/24 18:44 4 mg ONCE ONE Administration Ondansetron HCl 4 mg 07/23/24 16:22 07/23/24 16:34 Ondansetron 2 Mg/Ml Inj IVP 07/23/24 16:23 4 mg ONCE ONE Administration Medical Decision Making Lab Data Labs: Lab Results 07/23/24 07/23/24 Range/Units 16:45 17:48 WBC 8.17 (4.50-11.00) K/uL RBC 4.56 (4.00-5.20) m/uL Hgb 14.2 (12.0-16.0) gm/dL Hct 42.6 (33.0-51.0) % MCV 93 (80-100) fL MCH 31 (26-34) pg MCHC 33 (32-36) gm/dL RDW Coeff of Shellie 12.2 (11.5-15.5) % Plt Count 238 (140-440) K/uL Neut % (Auto) 54.5 (42.0-72.0) % Lymph % (Auto) 36.2 (20-44) % Petroleum % (Auto) 6.5 (0.0-11.0) % Eos % (Auto) 2.3 (0.0-7.0) % Baso % (Auto) 0.4 (0.0-3.0) % Neut # (Auto) 4.45 (1.7-7.0) K/uL Lymph # (Auto) 2.96 H (0.90-2.90) K/uL Petroleum # (Auto) 0.50 (0.00-0.90) K/UL Eos # (Auto) 0.19 (0.00-0.50) K/uL Baso # (Auto) 0.03 (0.00-0.30) K/uL Abs Immat Gran (auto) 0.01 (0.00-0.30) K/uL Imm/Tot Granulo (auto) 0.1 % Urine Color Yellow (Yellow) Urine Appearance Clear (Clear) Urine pH 6.0 (5.0-8.5) Ur Specific [place] 1.010 (1.000-1.030) Urine Protein Trace A (Negative) Urine Glucose (UA) Negative (Negative) Urine Ketones Negative (Negative) Urine Blood 3+ A (Negative) Urine Nitrite Negative (Negative) Urine Bilirubin Negative (Negative) Urine Urobilinogen 0.2 (0.2-1.0) Ur Leukocyte Esterase 2+ A (Negative) Urine RBC 10-25 A (0-2) Urine WBC 10-25 A (0-5) Ur Squamous Epith Cells Few (None-Few) Urine Bacteria Few A (None) Discharge Plan Discharge Clinical Impression: Epiploic appendagitis, Kidney stone Patient Disposition: Home, Self-Care Condition: Improved Instructions: Epiploic Appendagitis (ED) Additional Instructions: Your CT scan shows epiploic appendagitis, which is generally a self limited process. While the radiologist is not able to determine whether this is new today or not, the fact that you have continued pain suggest this is probably the source of your pain rather than a kidney stone. It does look like you passed a kidney stone recently, but this stone is in the bladder and should not be causing continued pain. This stone likely cause the blood you saw in your urine earlier today. I would recommend taking ibuprofen, 400 mg 3 times daily with food. I have given you a prescription for [place] if needed for additional pain medication at home. You should improve over the next few days, if not, please see your primary care doctor. If you have severe uncontrolled pain, new s ymptoms such as fever, vomiting, or other worsening, return to the emergency department at any time. Prescriptions: No Action dextroamphetamine-amphetamine [Adderall] 20 mg tablet 20 mg PO QDAY Qty: 30 0RF albuterol sulfate [Ventolin HFA] 90 mcg/actuation HFA aerosol inhaler 2 puff inhalation Q4H PRN (Reason: shortness of breath or wheezing) Qty: 8.5 0RF Wegovy 1.7 mg/0.75 mL pen injector 1.7 mg subcut Wegovy 2.4 mg/0.75 mL pen injector 2.4 mg subcut aspirin [Adult Aspirin Regimen] 81 mg tablet,delayed release (DR/EC) 81 mg PO QDAY fluticasone propionate 50 mcg/actuation spray,suspension 2 spray intranasal QDAY Rx Instructions: administer into each nostril rizatriptan 10 mg tablet 10 mg PO .PRN Rx Instructions: as a single dose albuterol sulfate 2.5 mg /3 mL (0.083 %) solution for nebulization 2.5 mg inhalation Q4H PRN metaxalone 800 mg tablet 800 mg PO QHS PRN (Reason: muscle pain) Qty: 20 0RF venlafaxine 150 mg capsule,extended release 24hr 150 mg PO QDAY Qty: 90 0RF atorvastatin 10 mg tablet 10 mg PO QHS Qty: 90 0RF Follow Up/Referrals: Robin Long MD [Primary Care Provider] - Stand Alone Forms: [facility] Info Instructions
[2024-07-23] MEDS: KETOROLAC 15 MG/ML inj IVP (16:33)
[2024-07-23] MEDS: 0.9 % SODIUM CHLORIDE 1000 ml 1,000 ML IV (16:33)
[2024-07-23] MEDS: MORPHINE 4 MG/ML INJ IVP ×2 (16:34→19:14)
[2024-07-23] MEDS: ONDANSETRON 2 MG/ML inj 4 MG IVP (16:34)
[2024-07-23 16:51] LABS: Basophils Absolute Auto 0.03 K/uL (0.00-0.30); Basophils Percent Auto 0.4 % (0.0-3.0); Eosinophils Absolute Auto 0.19 K/uL (0.00-0.50); Eosinophils Percent Auto 2.3 % (0.0-7.0); Hematocrit 42.6 % (33.0-51.0); Hemoglobin* 14.2 gm/dL (12.0-16.0); Immature Granulocytes Abs Auto 0.01 K/uL (0.00-0.30); Immature Granulocytes Pct Auto 0.1 %; Lymphocytes Absolute Auto 2.96 K/uL (0.90-2.90); Lymphocytes Percent Auto 36.2 % (20-44); Mean Corpuscular HGB Conc 33 gm/dL (32-36); Mean Corpuscular Hemoglobin 31 pg (26-34); Mean Corpuscular Volume 93 fL (80-100); Monocytes Percent Auto 6.5 % (0.0-11.0); Neutrophils Absolute Auto 4.45 K/uL (1.7-7.0); Neutrophils Percent Auto 54.5 % (42.0-72.0); Platelet Count* 238 K/uL (140-440); RDW Coefficient of Variation % 12.2 % (11.5-15.5); Red Blood Count 4.56 m/uL (4.00-5.20); White Blood Count* 8.17 K/uL (4.50-11.00)
[2024-07-23 16:56] LABS: Slide Review Reflex No
[2024-07-23 17:51] LABS: Appearance Urine Clear (Clear); Bilirubin Urine Negative (Negative); Blood Urine 3+ (Negative); Color Urine Yellow (Yellow); Glucose Urine Negative (Negative); Ketones Urine Negative (Negative); Leukocyte Esterase Urine 2+ (Negative); Nitrite Urine Negative (Negative); Protein Urine Trace (Negative); Urobilinogen Urine 0.2 (0.2-1.0)
[2024-07-23 18:10] LABS: Bacteria Urine Few; Squamous Epithelial Cell Urine Few (None-Few)
--- OUTSIDE RECORDS SUMMARY | 2024-07-23 18:34 | XMS_ITS | Clinical Summary ---
Author Organization [facility] Address [address] [place] [address] Phone Care Team Providers Care Scale Technician Name Role Phone Emre Ross MD Primary Care Provider [phone] Allergies Active Allergy Reactions Criticality Noted Date [...] 2024 Insurance PM [employer] Care Teams Scale Technician Relationship Specialty Start Date End Date Emre Ross MD [address] [place] [address] PCP - General 12/03/19
--- OUTSIDE RECORDS SUMMARY | 2024-07-23 18:34 | XMS_ITS | Clinical Summary ---
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 05/27 Nella BRAVO-Ty Aneurysm of cerebral artery Cerebrovascu lar disease 50837123 (SNOMED CT) 05/11 Active 05/11 Abel Briseno MD Cerebrovascular disease Visual changes 36217551 (SNOMED CT) 05/11 Active 05/11 Abel Briseno MD Disorder of vision Migraine without aura 66972738 (SNOMED CT) 07/03 Active 07/29 Diane Lucas MD Migraine without aura Medications Medication Instructions Start Date Stop Date Generic Name [facility] Provider METAXALONE 800 MG TABS metaxalone [id number] Abel Briseno MD OMEPRAZOLE 20 MG CPDR TK 1 C PO BID omeprazole 14476905044 Abel Briseno MD GABAPENTIN 300 MG CAPS TK 1 C PO TID gabapentin 03414886109 Abel Briseno MD VICODIN TABS VICODIN TABS Abel Briseno MD ESCITALOPRAM OXALATE 20 MG TABS TK 1 T PO QD escitalopram oxalate 87364340752 Abel Briseno MD VENLAFAXINE HCL ER 150 MG [id number] TAKE 1 CAPSULE BY MOUTH DAILY venlafaxine 00487347344 Abel Briseno MD ADDERALL XR 10 MG [id number] dextroamphetami ne-amphetamine [id number] Abel Briseno MD ATORVASTATIN CALCIUM 10 MG TABS atorvastatin 86677902968 Abel Briseno MD CELECOXIB 200 MG CAPS TAKE 1 CAPSULE BY MOUTH TWICE DAILY celecoxib 27487388226 Abel Briseno MD VICODIN TABS HYDROCODONE-YESICA TAMINOPHEN TABS 98294580518 Diane Lucas MD METAXALONE 800 MG TABS METAXALONE 64571537504 Diane Lucas MD OMEPRAZOLE 20 MG CPDR TK 1 C PO BID OMEPRAZOLE 80121250979 Diane Lucas MD ESCITALOPRAM OXALATE 20 MG TABS TK 1 T PO QD ESCITALOPRAM OXALATE 96482710203 Diane Lucas MD GABAPENTIN 300 MG CAPS TK 1 C PO TID GABAPENTIN 08341459951 Diane Lucas MD Medications Administered No information [...] Date ORDERS Follow up JANIS after testing [id number] MRA-Head W/O [id number] MRA-Neck W/WO ORDERS Echocardiogram Compl ete with Bubble w/o Contrast ORDERS Obtain outside records 03/10 [id number] Documentation of current medicatio ns [id number] MRA-Neck W/O Vital Signs Date Name Value [...]
--- OUTSIDE RECORDS SUMMARY | 2024-07-23 18:34 | XMS_ITS | Clinical Summary ---
Author Organization [employer] [facility] Address [address] [place] [address] Care Team Providers Care Dehairing Machine Tender Name Role Phone Emre Ross MD Primary Care Provider [phone] Allergies Active Allergy Reactions Criticality Noted Date [...] PM CDT Legal Sex Female 6:58 AM GAMING PIT BOSS Gender Identity Female 07/03/2023 4:24 PM CDT [...] Procedure Name Priority Date/Time Associated Diagnosis Comments PRODUCT SAFETY ASSOCIATE THIN PREP PAP SCREEN IMAGED Routine 10/09/2017 11:15 AM CDT from Last 3 Months or Most Recently Relevant to Health Maintenance Results * PRODUCT SAFETY ASSOCIATE THIN PREP PAP SCREEN IMAGED (10/09/2017 11:15 AM CDT) Case Report Gynecologic Cytology Report Case: [id number] Authorizing Provider: Jackie Olivo MD Collected: 10/09/2017 1115 First Screen: Yancy Singh Received: 10/09/2017 1602 Specimen: PRODUCT SAFETY ASSOCIATE ThinPrep Vial Screening, Cervical/Vaginal 10/19/2017 12:09 PM CDT [facility] INTERPRETATION/ RESULT NEGATIVE FOR INTRAEPITHELIAL LESION OR MALIGNANCY (NIL) (none) 10/19/2017 12:09 PM CDT [facility] at 1209 CDT SPECIMEN ADEQUACY Satisfactory for evaluation Endocervical component present 10/19/2017 12:09 PM CDT [facility] HPV REQUEST HPV and PAP 10/19/2017 12:09 PM CDT [facility] Date of LMP 09/28/2017 10/19/2017 12:09 PM CDT [facility] Last Pap Date 12/19/2011 10/19/2017 12:09 PM CDT [facility] Last Pap Result NIL 8 12:09 PM CDT [facility] Automated Review Successful 10/19/2017 12:09 PM CDT [facility] Comment:Specimen processed s uccessfully by automated author's agent device, ThinPrep Imaging System, [employer] ANCILLARY TESTING PRODUCT SAFETY ASSOCIATE HPV Ordered, Please see separate report 10/19/2017 12:09 PM CDT [facility] Note The pap test is a [...] lesions. Cytology is screened and interpreted at [facility] - [address], [place] [address] and [facility] - [address]; [place] [address] and [facility] - [address]; [place] [address] and [facility] [address]; [place] [address] 10/19/2017 12:09 PM T [facility] Other (Cervical/Vagina l) 10/09/2017 11:15 AM CDT 10/09/2017 4:02 PM CDT us Jackie Olivo MD PATHOLOGY/CYTOLOGY Final Res ult [facility] [address] [place] [address], from Last 3 Months or Most Recently Relevant to Health Maintenance Insurance [facility] [place] [id number] Care Teams Dehairing Machine Tender Relationship Specialty Start Date End Date Emre Ross MD [address] [place] [address] PCP - General Family Practice 05/28/20
[2024-07-23 19:49] LABS: Chloride* 104 mmol/L (96-114); Potassium* 4.2 mmol/L (3.6-5.1); Sodium* 137 mmol/L (135-149)
[2024-07-23 19:53] LABS: Anion Gap 8 mEq/L (7-15); Blood Urea Nitrogen* 13 mg/dL (7-30); Calcium* 8.8 mg/dL (8.4-10.6); Carbon Dioxide* 25 mmol/L (20-32); Creatinine* 0.9 mg/dL (0.5-1.5); Est. Creatinine Clearance* 65.34; Estimated Glomerular Filt Rate 75 ml/min; Glucose* 83 mg/dL (60-115)
== END 2024-07-23 19:31 | disposition home or self-care (01) ==
PROVIDERS: Emergency Provider Emergency Medicine; PCP Family Medicine
DX: K63.89 Other specified diseases of intestine (principal); N20.0 Calculus of kidney
CPT/HCPCS: 36415; 74176; 80048; 81001; 85025; 86140; 87086; 96361; 96374; 96375; 96376; 99284; J1885; J2270; J2405; J7030

== ENCOUNTER 2024-07-29 09:36 | Emergency (ER) | payer OTHER, SELFPAY ==
--- OUTSIDE RECORDS SUMMARY | 2024-07-29 09:39 | XMS_ITS | Clinical Summary ---
Author Organization [employer] [facility] Address [address] [place] [address] Care Team Providers Care Supervisor Word Processing Name Role Phone Emre Ross MD Primary Care Provider [phone] Allergies Active Allergy Reactions Criticality Noted Date [...] PM CDT Legal Sex Female 6:58 AM WASTE PAPER HAMMERMILL OPERATOR Gender Identity Female 07/03/2023 4:24 PM CDT [...] Procedure Name Priority Date/Time Associated Diagnosis Comments WEB SERVICES PROFESSIONAL THIN PREP PAP SCREEN IMAGED Routine 10/09/2017 11:15 AM CDT from Last 3 Months or Most Recently Relevant to Health Maintenance Results * WEB SERVICES PROFESSIONAL THIN PREP PAP SCREEN IMAGED (10/09/2017 11:15 AM CDT) Case Report Gynecologic Cytology Report Case: [id number] Authorizing Provider: Jackie Olivo MD Collected: 10/09/2017 1115 First Screen: Yancy Singh Received: 10/09/2017 1602 Specimen: WEB SERVICES PROFESSIONAL ThinPrep Vial Screening, Cervical/Vaginal 10/19/2017 12:09 PM CDT [facility] INTERPRETATION/ RESULT NEGATIVE FOR INTRAEPITHELIAL LESION OR MALIGNANCY (NIL) (none) 10/19/2017 12:09 PM CDT [facility] at 1209 CDT SPECIMEN ADEQUACY Satisfactory for evaluation Endocervical component present 10/19/2017 12:09 PM CDT [facility] HPV REQUEST HPV and PAP 10/19/2017 12:09 PM CDT [facility] Date of LMP 09/28/2017 10/19/2017 12:09 PM CDT [facility] Last Pap Date 12/19/2011 10/19/2017 12:09 PM CDT [facility] Last Pap Result NIL 8 12:09 PM CDT [facility] Automated Review Successful 10/19/2017 12:09 PM CDT [facility] Comment:Specimen processed s uccessfully by automated occupational therapy department chair device, ThinPrep Imaging System, [employer] ANCILLARY TESTING WEB SERVICES PROFESSIONAL HPV Ordered, Please see separate report 10/19/2017 12:09 PM CDT [facility] Note The pap test is a [...] lesions. Cytology is screened and interpreted at [facility] - [address], [place] [address] and [facility] - [address]; [place] [address] and [facility] - [address]; [place] [address] and [facility] [address]; [place] [address] 10/19/2017 12:09 PM T [facility] Other (Cervical/Vagina l) 10/09/2017 11:15 AM CDT 10/09/2017 4:02 PM CDT us Jackie Olivo MD PATHOLOGY/CYTOLOGY Final Res ult [facility] [address] [place] [address], from Last 3 Months or Most Recently Relevant to Health Maintenance Insurance [facility] Care Teams Supervisor Word Processing Relationship Specialty Start Date End Date Emre Ross MD [address] [place] [address] PCP - General Family Practice 05/28/20
--- OUTSIDE RECORDS SUMMARY | 2024-07-29 09:39 | XMS_ITS | Clinical Summary ---
Author Organization [facility] Address [address] [place] [address] Phone Care Team Providers Care Chief Information Officer Name Role Phone Emre Ross MD Primary Care Provider [phone] Allergies Active Allergy Reactions Criticality Noted Date [...] 2024 Insurance PM [employer]URANCE Care Teams Chief Information Officer Relationship Specialty Start Date End Date Emre Ross MD [address] [place] [address] PCP - General 12/03/19
--- OUTSIDE RECORDS SUMMARY | 2024-07-29 09:39 | XMS_ITS | Clinical Summary ---
Author Organization [facility] Address [address] , [address] [place] [address] Phone Care Team Providers Care Weaving Instructor Name Role Phone [facility] Unavailable Unava ilable Conditions or Problems Problem Name Problem Code Onset Date Status Entry Date Provider Comment Standard Description Annotate Posterior communicatin g artery aneurysm [id number] (SNOMED CT) 05/26 Active 05/27 Nella BRAVO-Ty Aneurysm of cerebral artery Cerebrovascu lar disease 87015160 (SNOMED CT) 05/11 Active 05/11 Abel Briseno MD Cerebrovascular disease Visual changes [id number] (SNOMED CT) 05/11 Active 05/11 Able Briseno MD Disorder of vision Migraine without aura 55357757 (SNOMED CT) 07/03 Active 07/29 Diane Lucas MD Migraine without aura Medications Medication Instructions Start Date Stop Date Generic Name [facility] Provider METAXALONE 800 MG TABS metaxalone [id number] Abel Briseno MD OMEPRAZOLE 20 MG CPDR TK 1 C PO BID omeprazole 91903091394 Abel Briseno MD GABAPENTIN 300 MG CAPS TK 1 C PO TID gabapentin 51496452733 Abel Briseno MD VICODIN TABS VICODIN TABS Abel Briseno MD ESCITALOPRAM OXALATE 20 MG TABS TK 1 T PO QD escitalopram oxalate 57616551069 Abel Briseno MD VENLAFAXINE HCL ER 150 MG [id number] TAKE 1 CAPSULE BY MOUTH DAILY venlafaxine 49726681696 Abel Briseno MD ADDERALL XR 10 MG [id number] dextroamphetami ne-amphetamine 09618658263 Abel Briseno MD ATORVASTATIN CALCIUM 10 MG TABS atorvastatin 24415769690 Abel Briseno MD CELECOXIB 200 MG CAPS TAKE 1 CAPSULE BY MOUTH TWICE DAILY celecoxib 60170925416 Abel Briseno MD VICODIN TABS HYDROCODONE-YESICA TAMINOPHEN TABS 14552777900 Diane Lucas MD METAXALONE 800 MG TABS METAXALONE 82882399589 Diane Lucas MD OMEPRAZOLE 20 MG CPDR TK 1 C PO BID OMEPRAZOLE 75613366641 Diane Lucas MD ESCITALOPRAM OXALATE 20 MG TABS TK 1 T PO QD ESCITALOPRAM OXALATE 28607523715 Diane Lucas MD GABAPENTIN 300 MG CAPS TK 1 C PO TID GABAPENTIN 21887053891 Diane Lucas MD Medications Administered No information [...] Date ORDERS Follow up JANIS after testing [id number] MRA-Head W/O [id number] MRA-Neck W/WO ORDERS Echocardiogram Compl ete with Bubble w/o Contrast ORDERS Obtain outside records 03/10 [facility] [email or web address] Documentation of current medicatio ns [id number] MRA-Neck W/O Vital Signs Date Name Value [...]
[2024-07-29 09:49] VITALS: BP 122/91; PULSE 96; RESP 14; TEMP 36; O2SAT 97; BMI 29.1
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
--- OUTSIDE RECORDS SUMMARY | 2024-07-29 10:30 | XMS_ITS | Clinical Summary ---
Author Organization [facility] Address [address] [place] [address] Care Team Providers Care Drilling Contractor Name Role Phone Emre Ross MD Primary Care Provider [phone] Allergies Active Allergy Reactions Criticality Noted Date [...] PM CDT Legal Sex Female 6:58 AM LITHOGRAPHIC ETCHER Gender Identity Female 07/03/2023 4:24 PM CDT [...] Procedure Name Priority Date/Time Associated Diagnosis Comments LEAD NURSE THIN PREP PAP SCREEN IMAGED Routine 10/09/2017 11:15 AM CDT from Last 3 Months or Most Recently Relevant to Health Maintenance Results * LEAD NURSE THIN PREP PAP SCREEN IMAGED (10/09/2017 11:15 AM CDT) Case Report Gynecologic Cytology Report Case: [id number] Authorizing Provider: Jackie Olivo MD Collected: 10/09/2017 1115 First Screen: Yancy Singh Received: 10/09/2017 1602 Specimen: LEAD NURSE ThinPrep Vial Screening, Cervical/Vaginal 10/19/2017 12:09 PM CDT [facility] INTERPRETATION/ RESULT NEGATIVE FOR INTRAEPITHELIAL LESION OR MALIGNANCY (NIL) (none) 10/19/2017 12:09 PM CDT [facility] at 1209 CDT SPECIMEN ADEQUACY Satisfactory for evaluation Endocervical component present 10/19/2017 12:09 PM CDT [facility] HPV REQUEST HPV and PAP 10/19/2017 12:09 PM CDT [facility] Date of LMP 09/28/2017 10/19/2017 12:09 PM CDT [facility] Last Pap Date 12/19/2011 10/19/2017 12:09 PM CDT [facility] Last Pap Result NIL 8 12:09 PM CDT [facility] Automated Review Successful 10/19/2017 12:09 PM CDT [facility] Comment:Specimen processed s uccessfully by automated pattern changer and repairer device, ThinPrep Imaging System, [employer] ANCILLARY TESTING LEAD NURSE HPV Ordered, Please see separate report 10/19/2017 12:09 PM CDT [facility] Note The pap test is a [...] lesions. Cytology is screened and interpreted at [facility] - [address], [place] [address] and [facility] - [address]; [place] [address] and [facility] - [address]; [place] [address] and [facility] [address]; [place] [address] 10/19/2017 12:09 PM T [facility] Other (Cervical/Vagina l) 10/09/2017 11:15 AM CDT 10/09/2017 4:02 PM CDT us Jackie Olivo MD PATHOLOGY/CYTOLOGY Final Res ult [email or web address] LAB[facility] [address] [place] [address], from Last 3 Months or Most Recently Relevant to Health Maintenance Insurance [facility] Care Teams Drilling Contractor Relationship Specialty Start Date End Date Emre Ross MD [address] [place] [address] PCP - General Family Practice 05/28/20
--- OUTSIDE RECORDS SUMMARY | 2024-07-29 10:30 | XMS_ITS | Clinical Summary ---
Author Organization [facility] Address [address] [place] [address] Phone Care Team Providers Care Hacksaw Inspector Name Role Phone Emre Ross MD Primary Care Provider [phone] Allergies Active Allergy Reactions Criticality Noted Date [...] 2024 Insurance PM [employer] Care Teams Hacksaw Inspector Relationship Specialty Start Date End Date Emre Ross MD [address] [place] [address] PCP - General 12/03/19
--- OUTSIDE RECORDS SUMMARY | 2024-07-29 10:30 | XMS_ITS | Clinical Summary ---
Author Organization [facility] Address [address] , [address] [place] [address] Phone Care Team Providers Care Corporate Vp Advertising & Online Name Role Phone [facility] Unavailable Unava ilable Conditions or Problems Problem Name Problem Code Onset Date Status Entry Date Provider Comment Standard Description Annotate Posterior communicatin g artery aneurysm [id number] (SNOMED CT) 05/26 Active 05/27 Nella BRAVO-Ty Aneurysm of cerebral artery Cerebrovascu lar disease 09793769 (SNOMED CT) 05/11 Active 05/11 Abel Briseno MD Cerebrovascular disease Visual changes 48987859 (SNOMED CT) 05/11 Active 05/11 Abel Briseno MD Disorder of vision Migraine without aura 88784303 (SNOMED CT) 07/03 Active 07/29 Diane Lucas MD Migraine without aura Medications Medication Instructions Start Date Stop Date Generic Name [facility] Provider METAXALONE 800 MG TABS metaxalone 83062267534 Abel Briseno MD OMEPRAZOLE 20 MG CPDR TK 1 C PO BID omeprazole 66352291362 Abel Briseno MD GABAPENTIN 300 MG CAPS TK 1 C PO TID gabapentin 13263671885 Abel Briseno MD VICODIN TABS VICODIN TABS Abel Briseno MD ESCITALOPRAM OXALATE 20 MG TABS TK 1 T PO QD escitalopram oxalate 79020935992 Abel Briseno MD VENLAFAXINE HCL ER 150 MG [id number] TAKE 1 CAPSULE BY MOUTH DAILY venlafaxine 25660596257 Abel Briseno MD ADDERALL XR 10 MG [id number] dextroamphetami ne-amphetamine 26836095906 Abel Briseno MD ATORVASTATIN CALCIUM 10 MG TABS atorvastatin 39277578623 Abel Briseno MD CELECOXIB 200 MG CAPS TAKE 1 CAPSULE BY MOUTH TWICE DAILY celecoxib 25283728713 Abel Briseno MD VICODIN TABS HYDROCODONE-YESICA TAMINOPHEN TABS 26520851131 Diane Lucas MD METAXALONE 800 MG TABS METAXALONE 18658581049 Diane Lucas MD OMEPRAZOLE 20 MG CPDR TK 1 C PO BID OMEPRAZOLE 69897302231 Diane Lucas MD ESCITALOPRAM OXALATE 20 MG TABS TK 1 T PO QD ESCITALOPRAM OXALATE 92907943087 Diane Lucas MD GABAPENTIN 300 MG CAPS TK 1 C PO TID GABAPENTIN 20039593191 Diane Lucas MD Medications Administered No information [...] Date ORDERS Follow up JANIS after testing [id number] MRA-Head W/O [id number] MRA-Neck W/WO ORDERS Echocardiogram Compl ete with Bubble w/o Contrast ORDERS Obtain outside records 03/10 [facility]-[id number] Documentation of current medicatio ns [id number] MRA-Neck W/O Vital Signs Date Name Value [...]
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
== END 2024-07-29 13:39 | disposition home or self-care (01) ==
PROVIDERS: Emergency Provider Family Medicine; PCP Family Medicine
DX: S09.90XA Unspecified injury of head, initial encounter (principal); S40.022A Contusion of left upper arm, initial encounter; Y04.2XXA Assault by strike against or bumped into by another person, initial encounter
CPT/HCPCS: 70450; 99283; 99284

== ENCOUNTER 2024-11-01 15:48 | Outpatient (CLI) | payer OTHER, SELFPAY ==
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
== END 2024-11-01 15:49 | disposition home or self-care (01) ==
LOC: CT 15:49
PROVIDERS: PCP Family Medicine; Visit Provider Family Medicine
DX: H57.13 Ocular pain, bilateral (principal); S05.92XA Unspecified injury of left eye and orbit, initial encounter
CPT/HCPCS: 70480

== ENCOUNTER 2025-03-21 08:05 | Emergency (ER) | payer OTHER, SELFPAY ==
[2025-03-21] VITALS (12 sets, daily range): BP systolic 103–143; BP diastolic 67–91; PULSE 65–89; RESP 10–18; TEMP 35.9; O2SAT 95–98; BMI 30.7
--- NOTE | 2025-03-21 08:39 | ED.GENADULT ---
HPI - General Adult General Time Seen by Provider: 08:39 Date Seen: 03/21/25 Chief complaint: Fall/Minor Trauma Stated complaint: fever cough and had a fall this morning Time Seen by Provider: 03/21/25 08:38 Source: patient and RN notes reviewed Mode of arrival: ambulatory Limitations: no limitations History of Present Illness HPI narrative: This 54-year-old female is ambulatory into the ER after a fall/syncopal episode. Flaco awoke on her kitchen floor, she was walking over to the kitchen table to sit down as she had been feeling suddenly dizzy and lightheaded, felt sweaty with this. She noted no chest pain, no palpitations, no shortness of breath. She came to on the ground, was on her left side, is not sure if she hit her left forehead and the bridge of her nose on the chair. She rolled on her back, her dog was next to her scratching on the ground. She has headache with this now, left forehead pain. Her nose does not appear to have had any bleeding. She is not on any blood thinners. She has not passed out like that before. She did take some codeine this morning, had some left over and had a little coughing just starting today. She had been sick for the 3 days prior with fevers, slight nasal congestion. The fever broke yesterday. She actually is feeling better. She was offered triple viral swab both by nursing staff and myself and she declines at this time. She did have a concussion in September and had headaches for weeks, she is concerned about that. She has some mild generalized neck pain. She was going down to the kitchen this morning around 630 to eat when she had the symptoms of lightheadedness. The cough walker at around 2:00 a.m. and that is when she took the left over codeine. No chest pain, no shortness of breath, no significant coughing at this time. She has a little posterior lower left rib pain but is not short of breath at this time. Her problem list shows narcolepsy, mild obesity, mild intermittent asthma, hearing loss, anxiety with depression, vitamin-D deficiency, ADHD predominantly inattentive type, allergic rhinitis, cerebral aneurysm, hyperlipidemia, chronic fatigue syndrome, TMJ, chronic back pain. Medications reviewed. Related Data Home Medications ?Medication ?Instructions ?Recorded ?Confirmed albuterol sulfate 2.5 mg/3 mL 2.5 mg inhalation Q4H PRN 01/17/22 03/21/25 (0.083 %) solution for nebulization aspirin 81 mg tablet,delayed 81 mg PO QDAY 01/17/22 07/23/24 release (Adult Aspirin Regimen) Held on 07/23/24. Instructions: Order Change fluticasone propionate 50 2 spray intranasal QDAY PRN 01/17/22 03/21/25 mcg/actuation nasal spray,suspension rizatriptan 10 mg tablet 10 mg PO .PRN 01/17/22 03/21/25 prazosin 1 mg capsule 1 mg PO DAILY 03/21/25 03/21/25 Previous Rx's ?Medication ?Instructions ?Recorded albuterol sulfate 90 mcg/actuation 2 puff inhalation Q4H PRN 11/21/22 aerosol inhaler (Ventolin HFA) shortness of breath or wheezing #8.5 grams dextroamphetamine-amphetamine 20 20 mg PO QDAY #30 tabs 08/18/23 mg tablet (Adderall) metaxalone 800 mg tablet 800 mg PO QHS PRN muscle pain #20 10/24/23 tabs atorvastatin 10 mg tablet 10 mg PO QHS #90 tabs 04/23/24 venlafaxine 150 mg 150 mg PO QDAY #90 caps 04/23/24 capsule,extended release 24 hr Allergies Allergy/AdvReac Type Severity Reaction Status Date / Time hydromorphone (From Dilaudid) Allergy Severe Vomiting Verified 03/21/25 08:13 methocarbamol Allergy Severe tongue Verified 03/21/25 08:13 swelling oxycodone Allergy Severe tongue Verified 03/21/25 08:13 swelling Sulfa (Sulfonamide Allergy Mild Hives Verified 03/21/25 08:13 Antibiotics) Review of Systems Status of ROS: Reports: 6 or more systems reviewed and unremarkable except as noted in History and below [facility] Medical History Narcolepsy ?G47.419 - Narcolepsy without cataplexy (ICD-10) 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 - Other obesity due to excess calories (ICD-10) Mild intermittent asthma ?J45.20 - Mild intermittent asthma, uncomplicated (ICD-10) Calculus of kidney (02/03/13) ?N20.0 - Calculus of kidney (ICD-10) ADHD, 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 - Attention-deficit hyperactivity disorder, predominantly inattentive type (ICD-10) Allergic rhinitis ?J30.9 - Allergic rhinitis, unspecified (ICD-10) Hyperlipidemia ?E78.5 - Hyperlipidemia, unspecified (ICD-10) Hearing loss in left ear ?H91.92 - Unspecified hearing loss, left ear (ICD-10) Vitamin D deficiency ?E55.9 - Vitamin D deficiency, unspecified (ICD-10) Temporomandibular joint disorder ?M26.609 - Unspecified temporomandibular joint disorder, unspecified side (ICD-10) Pulmonary embolism (11/14/12) ?I26.99 - Other pulmonary embolism without acute cor pulmonale (ICD-10) Chronic fatigue syndrome ?G93.32 - Myalgic encephalomyelitis/chronic fatigue syndrome (ICD-10) Cerebral aneurysm ?I67.1 - Cerebral aneurysm, nonruptured (ICD-10) Anxiety with depression ?F41.8 - Other specified anxiety disorders (ICD-10) Goiter (02/19/09) ?E04.9 - Nontoxic goiter, unspecified (ICD-10) Surgical History S/P nasal polypectomy ?Z98.890 - Other specified postprocedural states (ICD-10) H/O rectocele repair ?Z98.890 - Other specified postprocedural states (ICD-10) S/P laparoscopic hysterectomy ?Z90.710 - Acquired absence of both cervix and uterus (ICD-10) S/P Milagro fundoplication (without gastrostomy tube) procedure ?Z98.890 - Other specified postprocedural states (ICD-10) History of hemorrhoidectomy (12/07/10) ?Z98.890 - Other specified postprocedural states (ICD-10) History of endometrial ablation (02/19/09) ?Z98.890 - Other specified postprocedural states (ICD-10) History of cholecystectomy (02/19/09) ?Z90.49 - Acquired absence of other specified parts of digestive tract (ICD-10) Family History Mother Diabetes Maternal Grandfather Diabetes Uncle Diabetes Social History What is your current living situation?: I presently have a place to live Problems where you live: no known problems In the past 12 months, utilities in danger of being shut off: no In past 12 months, lack of transportation kept you from medical appts, meetings, work, or getting things needed for daily living: no In the past 12 mos, have been you worried that your food would run out before you had money to buy more?: sometimes true In the past 12 mos, the food you bought just didn't last and you didn't have money to buy more?: never true Smoking Status: Former smoker Do you use any of these nicotine containing products: None Second hand tobacco smoke exposure: No How often do you have a drink containing alcohol: monthly or less How often do you have six or more drinks on one occasion: Never AUDIT-C Alcohol total score: 1 Non-prescribed substance use: denies use How often does anyone, including family, friends and others, physically hurt you: never How often does anyone, including family, friends and others, insult or talk down to you: fairly often How often does anyone, including family, friends and others, threaten you with harm: never How often does anyone, including family, friends and others, scream or curse at you: fairly often service: No Health Related Social Needs: food insecurity (Z59.41) and Other personal risk factors, not elsewhere classified (Z91.89) Exam Const: Vital Signs, click to edit/add: Vital Signs - 24 hr 03/21/25 08:18 03/21/25 08:31 03/21/25 09:12 Temperature 96.7 F L Pulse Rate 84 88 Pulse Rate [Pulse Oximeter] 89 Respiratory Rate 16 14 12 Blood Pressure 112/74 106/70 Blood Pressure [Ri ght Upper Arm] 117/75 Pulse Oximetry 97 95 95 Oxygen Delivery Me thod Room Air 03/21/25 09:22 03/21/25 09:31 03/21/25 10:01 Temperature Pulse Rate 80 78 Pulse Rate [Pulse Oximeter] Respiratory Rate 18 12 Blood Pressure 106/67 115/73 Blood Pressure [Ri ght Upper Arm] Pulse Oximetry 96 96 97 Oxygen Delivery Me thod This 54-year-old female is alert, interactive, no apparent distress come ambulatory into the ED of her own accord. She has visible mild contusion/hematoma on the left frontal forehead above the eyebrow. She also has small bruising swelling along the bridge of the nose. No traumatic change noted elsewhere on the face. Nasal bones palpate intact, anterior nares normal. Pupils equal round reactive, sclera clear, extraocular muscles intact. Wearing bilateral hearing aids. Symmetrical facial function, speech normal. Oropharynx normal. Neck with no appreciable palpable tenderness but she states she just generally has neck discomfort right now. No jugular venous distension, no adenopathy, no masses, no thyromegaly masses or nodules. Lungs are clear, good air entry, wheezing or crackles, no tachypnea, no accessory muscle use. Some mild chest wall tenderness on the posterolateral left lower rib border without any step-off or crepitus. Abdomen is soft, nontender, nondistended, no organomegaly, no rebound or guarding. Upper and lower extremity grossly normal, no strength deficits, no tremors, no dysmetria, normal sensation noted. Documenting provider has reviewed patient's vital signs: yes Course Course ED Course: Patient is presenting with complexity of recent illness, codeine use this morning and syncopal episode with trauma. Will be doing head CT, facial CT and cervical spine CT, left rib views with chest x-ray. Will also consider this syncopal evaluation looking at cardiac monitoring, EKG, D-dimer for possibility of thromboembolic disease such as pulmonary emboli. Right now she is hemodynamically stable and makes much of this less likely. Do think she probably had syncopal episode due to use of coating, recent illness and lack of supporting food and fluids in the system upon awakening this morning. Will give her IV fluids here, will do full complement of labs. Will rule out facial fractures, with the facial imaging and head CT, will see some of the sinuses to rule out sinusitis. The head CT will also help us rule out any bleed but doubt she has any significant intracranial hemorrhage given her current presentation. Reevaluation(s) Time of Reevaluation #1: 11:35 Reevaluation #1: Have reviewed CT imaging in an x-ray reports. Reviewed her D-dimer is mildly elevated as well as her liver enzymes. She does have chronic symptoms, has had a history of sinus surgery. It is difficult for her to say if she is feeling any acute sinus symptoms at this time. She does not drink any alcohol. It is plausible that she may have something viral like adenovirus as causative etiology for her symptoms causing liver enzyme elevation. This certainly could be viral mediated transaminitis. We will be doing chest CT PE protocol and we will take it through her abdomen to further look at the liver. Time of Reevaluation #2: 13:14 Reevaluation #2: Have reviewed Flaco's CT reports with her. There is no pathology on the chest abdomen or pelvis. She is worried because her mom of liver failure complicating comorbid illnesses. Does not sound like there was a necessarily identified reason for the liver failure. We did review that there can be hereditary liver diseases. She obviously has an illness, moderately elevated liver transaminases without any bilirubin elevation, platelet count was [address]. She has no evidence of bleeding, we discussed signs and symptoms of petechial hemorrhages, bleeding with brushing her teeth ir nose bleeds, all these would signify worsening platelets and she should be re-evaluated. She very well may have a normal liver and just has an underlying viral syndrome. She does have a primary in [place], recommend that she have her CBC and liver panel rechecked within 1 week, sooner if concerns or issues. Her syncope was very likely vasovagal and contributed to by her illness, probable low volume status from being ill and confounded by taking codeine. Vital Signs Vital signs: Initial Vital Signs Temperature 96.7 F L 03/21/25 08:18 Temperature Source Temporal Artery Scan 03/21/25 08:18 Pulse Rate 89 03/21/25 08:18 Pulse Rhythm Regular 03/21/25 08:18 Respiratory Rate 16 03/21/25 08:18 Blood Pressure 117/75 03/21/25 08:18 Blood Pressure Mean 89 03/21/25 08:18 Blood Pressure Position Supine 03/21/25 08:18 Pulse Oximetry 97 03/21/25 08:18 Oxygen Delivery Method Room Air 03/21/25 08:18 Vital Signs Temperature 96.7 F L 03/21/25 08:18 Pulse Rate 89 12/12/25 08:18 Respiratory Rate 16 03/21/25 08:18 Blood Pressure 117/75 03/21/25 08:18 Pulse Oximetry 97 03/21/25 08:18 Oxygen Delivery Method Room Air 03/21/25 08:18 Temperature 96.7 F L 03/21/25 08:18 Pulse Rate 78 03/21/25 10:01 Respiratory Rate 12 03/21/25 10:01 Blood Pressure 115/73 03/21/25 10:01 Pulse Oximetry 97 03/21/25 10:01 Oxygen Delivery Method Room Air 03/21/25 08:18 Medications Administered Medications: Discontinued Medications Generic Name Dose Route Start Last Admin Trade Name Freq PRN Reason Stop Dose Admin Sodium Chloride 1,000 mls @ 500 mls/hr 03/21/25 08:49 03/21/25 12:00 0.9 % Sodium Chloride 1000 Ml IV 03/21/25 10:48 Infused .Q2H DEVIKA Infusion Medical Decision Making Lab Data Lab results reviewed: Yes I reviewed the patient's lab results Labs: Lab Results 03/21/25 03/21/25 Range/Units 08:48 09:22 WBC 7.28 (4.50-11.00) K/uL RBC 4.14 (4.00-5.20) m/uL Hgb 12.8 (12.0-16.0) gm/dL Hct 37.5 (33.0-51.0) % MCV 91 (80-100) fL MCH 31 (26-34) pg MCHC 34 (32-36) gm/dL RDW Coeff of Shellie 12.3 (11.5-15.5) % Plt Count 95 L (140-440) K/uL Neut % (Auto) 75.0 H (42.0-72.0) % Lymph % (Auto) 16.1 L (20-44) % Page % (Auto) 8.0 (0.0-11.0) % Eos % (Auto) 0.7 (0.0-7.0) % Baso % (Auto) 0.1 (0.0-3.0) % Neut # (Auto) 5.50 (1.7-7.0) K/uL Lymph # (Auto) 1.20 (0.90-2.90) K/uL Page # (Auto) 0.60 (0.00-0.90) K/UL Eos # (Auto) 0.05 (0.00-0.50) K/uL Baso # (Auto) 0.01 (0.00-0.30) K/uL Abs Immat Gran (auto) 0.01 (0.00-0.30) K/uL Imm/Tot Granulo (auto) 0.1 % D-Dimer Quant (PE/DVT) 0.84 H (0.00-0.50) ug/ml VBG pH 7.340 (7.32-7.43) VBG pCO2 40 (40-50) mmHG VBG pO2 97.7 H (25-47) mmHG VBG HCO3 21 (21-28) mmol/L Sodium 139 (135-149) mmol/L Potassium 3.6 (3.6-5.1) mmol/L Chloride 106 (96-114) mmol/L Carbon Dioxide 20 (20-32) mmol/L Anion Gap 13 (7-15) mEq/L BUN 13 (7-30) mg/dL Creatinine 1.1 (0.5-1.5) mg/dL Estimated Creat Clear 53.46 Estimated GFR 59 ml/min Glucose 108 (60-115) mg/dL Lactate 2.5 H (0.5-1.9) mmol/L Calcium 8.8 (8.4-10.6) mg/dL Total Bilirubin 1.0 (0.1-1.5) mg/dL AST 306 H (12-35) U/L ALT 131 H (4-35) U/L Alkaline Phosphatase 62 (40-150) U/L POC Troponin I High Sensi < 2.9 L (2.9-13.0) pg/mL C-Reactive Protein 5.1 H (0.5-1.0) mg/dL NT-Pro-B Natriuret Pep 26 (See Note) pg/mL Total Protein 6.9 (6.0-8.3) g/dL Albumin 4.1 (3.3-5.0) g/dL Imaging Data CT scan - head: Attestation: I have reviewed the pertinent imaging results. Radiologist's impression: Patient: FLACO ROB Facility:[facility] Patient ID:?[id number] Site Patient ID:?[id number]. Site :?1970 Study:?CT-Head W/O-03/21/2025 9:07:54 AM Ordering Physician:Azalia Cisse Final Report: INDICATION: Injury COMPARISON: None TECHNIQUE: CT examination of the head was performed as axial sections without intravenous contrast. Images were obtained from the vertex of the skull through the skull base. Please note that all CT scans at this facility use dose modulation, iterative reconstruction, and/or weight-based dosing when appropriate to reduce radiation dose to as low as reasonably achievable. FINDINGS: The brain shows no sign of mass lesion, mass effect, hemorrhage, or edema. There are involutional changes. There is mild cortical atrophy and there is mild white matter disease. There is no hydrocephalus. The visualized portions of the orbits are normal in appearance. Subcutaneous hematoma in the left supraorbital area. The osseous structures are normal in appearance with no sign of abnormality in the skull base or calvarium. IMPRESSION: Involutional changes. No acute intracranial posttraumatic finding. Subcutaneous hematoma in the left supraorbital area. No subjacent orbital or calvarial injury. Please review the separate facial bone report. Please note that all CT scans at this facility use dose modulation, iterative reconstruction, and/or weight-based dosing when appropriate to reduce radiation dose to as low as reasonably achievable. Dictated by Jason Finch MD @ 03/21/2025 9:12:42 AM (Electronic Signature) CT facial bones: Attestation: I have reviewed the pertinent imaging results. Radiologist's impression: Patient: FLACO ROB Facility:?[facility] Patient ID:?[id number] Site Patient ID:?[id number]. Site :?1970 Study:?CT-Facial W/O-03/21/2025 9:08:01 AM Ordering Physician:?Case Cisse Final Report: Indication: Injury Technique: CT of the facial bones was performed. Imaging was acquired in the axial plane. The study was performed from the frontal sinuses through below the hyoid bone. Sagittal coronal reformatted imaging was performed. Contrast was not administered. Comparison: None prior to today Findings: There is left supraorbital soft tissue swelling. The globes are intact. There is no fracture or destructive process identified involving the facial bones. This includes the orbits, facial bones and mandible. There is TMJ arthrosis bilaterally. Soft tissue swelling overlying the nose but no definite fracture. Chronic sinus inflammatory disease is noted including multiple bilateral maxillary sinus mucosal retention cyst. Impression: 1. Soft tissue swelling. No foreign bodies. Globes are intact. No fracture or destructive process identified involving the facial bones. This includes the orbits, facial bones and mandible. 2. Bilateral TMJ arthrosis. 3. Significant apparent chronic paranasal sinus mucosal inflammatory disease Please note that all CT scans at this facility use dose modulation, iterative reconstruction, and/or weight-based dosing when appropriate to reduce radiation dose to as low as reasonably achievable. Dictated by Jason Finch MD @ 03/21/2025 9:20:33 AM (Electronic Signature) CT cervical spine: Attestation: I have reviewed the pertinent imaging results. Radiologist's impression: Patient: FLACO STEELEKali Facility:?[facility] Patient ID:?[id number] Site Patient ID:?[id number]. Site :?1970 Study:?CT-Spine Cervical W/O-03/21/2025 9:08:07 AM Ordering Physician:Azalia Cisse Final Report: INDICATION: Injury COMPARISON: None TECHNIQUE: CT examination of the cervical spine is performed without contrast using spiral technique. Thin axial, sagittal and coronal reconstructions were made. Please note that all CT scans at this facility use dose modulation, iterative reconstruction, and/or weight-based dosing when appropriate to reduce radiation dose to as low as reasonably achievable. FINDINGS: : No traumatic malalignment. Mild degenerative changes. No visible acute fracture, dislocation or destructive process. IMPRESSION: No acute fracture, dislocation or destructive process. Please note that all CT scans at this facility use dose modulation, iterative reconstruction, and/or weight-based dosing when appropriate to reduce radiation dose to as low as reasonably achievable. Dictated by Jason Finch MD @ 03/21/2025 9:16:23 AM (Electronic Signature) Chest x-ray: Attestation: I have reviewed the pertinent imaging results. Radiologist's impression: Patient: FLACO STEELEKali Facility:?[facility] Patient ID:?[id number] Site Patient ID:?[id number]. Site :?1970 Study:?XRay-Chest Left RIBS, ED-03/21/2025 9:21:10 AM Ordering Physician:Azalia Cisse Final Report: INDICATION: fall/syncope, L chest wall pain. (Sic) COMPARISON: Prior studies, the most recent dated 08/20/2023. TECHNIQUE: PA chest and two views of the left ribs (3 images). FINDINGS: Medical Devices: None. Lung Volumes: Adequate inspiration. No significant atelectasis. Lungs: Clear lungs. Pleura and Pleural spaces: No significant pleural effusion. No pneumothorax. No extrapleural hematoma. Mediastinum: Normal cardiomediastinal silhouette. Bony Thorax and Soft Tissues: No left rib fracture is identified. No significant incidental findings. IMPRESSION: No left rib fracture is identified. Dictated by Maynor Garcia MD @ 03/21/2025 9:24:29 AM (Electronic Signature) CT scan - chest: Attestation: I have reviewed the pertinent imaging results. Radiologist's impression: Patient: FLACO ROB Facility:?[facility] Patient ID:?[id number] Site Patient ID:?[id number]. Site :?1970 Study:?CT-Chest Angio W/ 95CC ISOVUE-370 PE PROTOCOL-03/21/2025 11:58:55 AM Ordering Physician:?Case Cisse Final Report: INDICATION: Pulmonary embolism suspected, syncope, elevated D-dimer, recent fever TECHNIQUE: CT chest PE was acquired with 100 cc Omnipaque 350 IV contrast. Coronal and MIP reconstructions were performed. COMPARISON: CT chest without contrast 05/30/2021 FINDINGS: Heart and vasculature: Contrast opacification of the pulmonary arterial tree is adequate. No sign of pulmonary embolism. Heart size is normal. Thoracic aorta and pulmonary artery are normal in caliber. Prominent pericardial recesses, mildly increased compared to prior CT. Lungs and pleura: Mild dependent atelectasis. No pleural effusion or pneumothorax. Lymph nodes/mediastinum: No mediastinal, hilar, or axillary adenopathy. Chest wall: Unremarkable. Upper abdomen: No acute or significant findings. Bones: No acute or suspicious osseous abnormality. IMPRESSION: No evidence of pulmonary embolism. No acute findings within the chest. Please note that all CT scans at this facility use dose modulation, iterative reconstruction, and/or weight-based dosing when appropriate to reduce radiation dose to as low as reasonably achievable. Dictated by Promise Bazzi MD @ 03/21/2025 12:18:45 PM (Electronic Signature) CT scan - abdomen: Attestation: I have reviewed the pertinent imaging results. Radiologist's impression: Patient: FLACO ROB Facility:?[facility] Patient ID:?[id number] Site Patient ID:?[id number]. Site :?1970 Study:?CT-Abdomen/Pelvis W/ 95CC [id number]/12/2025 11:59:23 AM Ordering Physician:?Case Cisse Final Report: INDICATION: Syncope, transaminitis, recent fever TECHNIQUE: CT abdomen and pelvis acquired with 95 cc Isovue 370 IV contrast. COMPARISON: CT abdomen and pelvis without contrast 07/23/2024. FINDINGS: Lower chest: Unremarkable. Liver: Few subcentimeter hypoattenuating foci too small to characterize. Gallbladder and bile ducts: Status post cholecystectomy. Mildly prominent extrahepatic and intrahepatic bile ducts likely secondary to post cholecystectomy reservoir effect. Pancreas: Unremarkable. Spleen: Unremarkable. Normal in size. No masses. Adrenal glands: Unremarkable. No nodules. Kidneys: Normal parenchymal enhancement. Probable left renal cortical cyst and additional subcentimeter hypodensities too small to characterize. Nonobstructing calculus in the left lower pole. GI tract: Tiny hiatal hernia. No evidence of bowel obstruction or inflammation. Normal appendix. Scattered colonic diverticula without acute diverticulitis. Vasculature: Abdominal aorta is normal in caliber. Mesenteric arteries are patent. Lymph nodes: No lymphadenopathy. Peritoneum/Abdominal Wall: Unremarkable. No free air or significant free fluid. Pelvis: Unremarkable. Status post hysterectomy. Bones: No acute or suspicious osseous abnormality. IMPRESSION: No acute findings identified within the abdomen or pelvis. Please note that all CT scans at this facility use dose modulation, iterative reconstruction, and/or weight-based dosing when appropriate to reduce radiation dose to as low as reasonably achievable. Dictated by Promise Bazzi MD @ 03/21/2025 12:26:40 PM (Electronic Signature) ECG Data Attestation: I personally reviewed and interpreted this ECG as follows: (Normal sinus rhythm, 84 beats per minute. Poor R-wave progression anterior precordial leads without any acute ST segment changes, nonspecific T-wave abnormality without ST changes in 3, V1, V3, possibly before in V5.) Prior ECG tracings: not available for review Discharge Plan Discharge Clinical Impression: Elevation of levels of liver transaminase levels, Thrombocytopenia Syncope Qualifiers: Syncope type: vasovagal syncope Qualified Code(s): R55 - Syncope and collapse Patient Disposition: Home, Self-Care Condition: Stable Instructions: Syncope (ED), Viral Syndrome (ED), Thrombocytopenia (ED) Additional Instructions: You need to schedule follow-up in clinic within 1 week, need your CBC and liver panel rechecked. Your primary provider can direct further if there is need for further investigation or follow-up. In the meantime, rest, drink plenty of fluids, make position changes slowly. If you feel you are worsening, have further concerns, please seek re-evaluation. Follow-up for any signs and symptoms of worsening thrombocytopenia as we reviewed; nose bleeds, bleeding with brushing your teeth, petechial skin hemorrhages. Activity Level: Activity as Tolerated Prescriptions: No Action dextroamphetamine-amphetamine [Adderall] 20 mg tablet 20 mg PO QDAY Qty: 30 0RF albuterol sulfate [Ventolin HFA] 90 mcg/actuation HFA aerosol inhaler 2 puff inhalation Q4H PRN (Reason: shortness of breath or wheezing) Qty: 8.5 0RF prazosin 1 mg capsule 1 mg PO DAILY aspirin [Adult Aspirin Regimen] 81 mg tablet,delayed release (DR/EC) 81 mg PO QDAY fluticasone propionate 50 mcg/actuation spray,suspension 2 spray intranasal QDAY PRN Rx Instructions: administer into each nostril rizatriptan 10 mg tablet 10 mg PO .PRN Rx Instructions: as a single dose albuterol sulfate 2.5 mg /3 mL (0.083 %) solution for nebulization 2.5 mg inhalation Q4H PRN metaxalone 800 mg tablet 800 mg PO QHS PRN (Reason: muscle pain) Qty: 20 0RF venlafaxine 150 mg capsule,extended release 24hr 150 mg PO QDAY Qty: 90 0RF atorvastatin 10 mg tablet 10 mg PO QHS Qty: 90 0RF Follow Up/Referrals: Robin Long MD [Staff Physician, Family Practice] Stand Alone Forms: MyHealth Info Instructions Procedures ABG Interpretation ABG Results: 03/21/25 09:22 VBG pH 7.340 VBG pCO2 40 VBG pO2 97.7 H VBG HCO3 21
--- NOTE | 2025-03-21 08:47 | CRLHL7_ITS ---
For Patients: As a result of the Cures Act, medical imaging exams and procedure reports are released immediately into your electronic medical record. You may view this report before your referring provider. If you have questions, please contact your health care provider. INDICATION: fall/syncope, L chest wall pain. (Sic) COMPARISON: Prior studies, the most recent dated 08/20/2023. TECHNIQUE: PA chest and two views of the left ribs (3 images). FINDINGS: Medical Devices: None. Lung Volumes: Adequate inspiration. No significant atelectasis. Lungs: Clear lungs. Pleura and Pleural spaces: No significant pleural effusion. No pneumothorax. No extrapleural hematoma. Mediastinum: Normal cardiomediastinal silhouette. Bony Thorax and Soft Tissues: No left rib fracture is identified. No significant incidental findings. IMPRESSION: No left rib fracture is identified. Dictated by Maynor Garcia MD @ 03/21/2025 9:24:29 AM (Electronically Signed)
--- NOTE | 2025-03-21 08:47 | CRLHL7_ITS ---
For Patients: As a result of the Century Cures Act, medical imaging exams and procedure reports are released immediately into your electronic medical record. You may view this report before your referring provider. If you have questions, please contact your health care provider. INDICATION: Injury COMPARISON: None TECHNIQUE: CT examination of the head was performed as axial sections without intravenous contrast. Images were obtained from the vertex of the skull through the skull base. Please note that all CT scans at this facility use dose modulation, iterative reconstruction, and/or weight-based dosing when appropriate to reduce radiation dose to as low as reasonably achievable. FINDINGS: The brain shows no sign of mass lesion, mass effect, hemorrhage, or edema. There are involutional changes. There is mild cortical atrophy and there is mild white matter disease. There is no hydrocephalus. The visualized portions of the orbits are normal in appearance. Subcutaneous hematoma in the left supraorbital area. The osseous structures are normal in appearance with no sign of abnormality in the skull base or calvarium. IMPRESSION: Involutional changes. No acute intracranial posttraumatic finding. Subcutaneous hematoma in the left supraorbital area. No subjacent orbital or calvarial injury. Please review the separate facial bone report. Please note that all CT scans at this facility use dose modulation, iterative reconstruction, and/or weight-based dosing when appropriate to reduce radiation dose to as low as reasonably achievable. Dictated by Jason Finch MD @ 03/21/2025 9:12:42 AM (Electronically Signed)
--- NOTE | 2025-03-21 08:47 | CRLHL7_ITS ---
For Patients: As a result of the Cures Act, medical imaging exams and procedure reports are released immediately into your electronic medical record. You may view this report before your referring provider. If you have questions, please contact your health care provider. Indication: Injury Technique: CT of the facial bones was performed. Imaging was acquired in the axial plane. The study was performed from the frontal sinuses through below the hyoid bone. Sagittal coronal reformatted imaging was performed. Contrast was not administered. Comparison: None prior to today Findings: There is left supraorbital soft tissue swelling. The globes are intact. There is no fracture or destructive process identified involving the facial bones. This includes the orbits, facial bones and mandible. There is TMJ arthrosis bilaterally. Soft tissue swelling overlying the nose but no definite fracture. Chronic sinus inflammatory disease is noted including multiple bilateral maxillary sinus mucosal retention cyst. Impression: 1. Soft tissue swelling. No foreign bodies. Globes are intact. No fracture or destructive process identified involving the facial bones. This includes the orbits, facial bones and mandible. 2. Bilateral TMJ arthrosis. 3. Significant apparent chronic paranasal sinus mucosal inflammatory disease Please note that all CT scans at this facility use dose modulation, iterative reconstruction, and/or weight-based dosing when appropriate to reduce radiation dose to as low as reasonably achievable. Dictated by Jason Finch MD @ 03/21/2025 9:20:33 AM (Electronically Signed)
--- NOTE | 2025-03-21 08:48 | CRLHL7_ITS ---
For Patients: As a result of the Cures Act, medical imaging exams and procedure reports are released immediately into your electronic medical record. You may view this report before your referring provider. If you have questions, please contact your health care provider. INDICATION: Injury COMPARISON: None TECHNIQUE: CT examination of the cervical spine is performed without contrast using spiral technique. Thin axial, sagittal and coronal reconstructions were made. Please note that all CT scans at this facility use dose modulation, iterative reconstruction, and/or weight-based dosing when appropriate to reduce radiation dose to as low as reasonably achievable. FINDINGS: : No traumatic malalignment. Mild degenerative changes. No visible acute fracture, dislocation or destructive process. IMPRESSION: No acute fracture, dislocation or destructive process. Please note that all CT scans at this facility use dose modulation, iterative reconstruction, and/or weight-based dosing when appropriate to reduce radiation dose to as low as reasonably achievable. Dictated by Jason Finch MD @ 03/21/2025 9:16:23 AM (Electronically Signed)
[2025-03-21 09:42] LABS: HCO3 VBG 21 mmol/L (21-28); Lactate* 2.5 mmol/L (0.5-1.9); PCO2 VBG 40 mmHG (40-50); PO2 VBG 97.7 mmHG (25-47); pH VBG 7.340 (7.32-7.43)
[2025-03-21 09:46] LABS: Hematocrit* 37.5 % (33.0-51.0); Hemoglobin* 12.8 gm/dL (12.0-16.0); Immature Granulocytes Abs Auto 0.01 K/uL (0.00-0.30); Immature Granulocytes Pct Auto 0.1 %; Lymphocytes Absolute Auto 1.20 K/uL (0.90-2.90); Mean Corpuscular HGB Conc 34 gm/dL (32-36); Mean Corpuscular Hemoglobin 31 pg (26-34); Mean Corpuscular Volume 91 fL (80-100); RDW Coefficient of Variation % 12.3 % (11.5-15.5); Red Blood Count* 4.14 m/uL (4.00-5.20); Slide Review Reflex No; White Blood Count* 7.28 K/uL (4.50-11.00)
[2025-03-21 10:06] LABS: Chloride* 106 mmol/L (96-114)
[2025-03-21 10:07] LABS: Albumin* 4.1 g/dL (3.3-5.0); Potassium* 3.6 mmol/L (3.6-5.1); Sodium* 139 mmol/L (135-149)
[2025-03-21 10:10] LABS: Alanine Aminotransferase* 131 U/L (4-35); Alkaline Phosphatase* 62 U/L (40-150); Anion Gap 13 mEq/L (7-15); Aspartate Amino Transferase* 306 U/L (12-35); Bilirubin Total* 1.0 mg/dL (0.1-1.5); Blood Urea Nitrogen* 13 mg/dL (7-30); Calcium* 8.8 mg/dL (8.4-10.6); Carbon Dioxide* 20 mmol/L (20-32); Creatinine* 1.1 mg/dL (0.5-1.5); Est. Creatinine Clearance* 53.46; Estimated Glomerular Filt Rate 59 ml/min; Glucose* 108 mg/dL (60-115); Total Protein* 6.9 g/dL (6.0-8.3)
[2025-03-21 10:34] LABS: NT Pro B Type NatriureticPept* 26 pg/mL (See Note)
[2025-03-21 10:38] LABS: D Dimer Quantitative* 0.84 ug/ml (0.00-0.50)
--- NOTE | 2025-03-21 11:37 | CRLHL7_ITS ---
For Patients: As a result of the Century Cures Act, medical imaging exams and procedure reports are released immediately into your electronic medical record. You may view this report before your referring provider. If you have questions, please contact your health care provider. INDICATION: Pulmonary embolism suspected, syncope, elevated D-dimer, recent fever TECHNIQUE: CT chest PE was acquired with 100 cc Omnipaque 350 IV contrast. Coronal and MIP reconstructions were performed. COMPARISON: CT chest without contrast 05/30/2021 FINDINGS: Heart and vasculature: Contrast opacification of the pulmonary arterial tree is adequate. No sign of pulmonary embolism. Heart size is normal. Thoracic aorta and pulmonary artery are normal in caliber. Prominent pericardial recesses, mildly increased compared to prior CT. Lungs and pleura: Mild dependent atelectasis. No pleural effusion or pneumothorax. Lymph nodes/mediastinum: No mediastinal, hilar, or axillary adenopathy. Chest wall: Unremarkable. Upper abdomen: No acute or significant findings. Bones: No acute or suspicious osseous abnormality. IMPRESSION: No evidence of pulmonary embolism. No acute findings within the chest. Please note that all CT scans at this facility use dose modulation, iterative reconstruction, and/or weight-based dosing when appropriate to reduce radiation dose to as low as reasonably achievable. Dictated by Promise Bazzi MD @ 03/21/2025 12:18:45 PM (Electronically Signed)
--- NOTE | 2025-03-21 11:37 | CRLHL7_ITS ---
For Patients: As a result of the Cures Act, medical imaging exams and procedure reports are released immediately into your electronic medical record. You may view this report before your referring provider. If you have questions, please contact your health care provider. INDICATION: Syncope, transaminitis, recent fever TECHNIQUE: CT abdomen and pelvis acquired with 95 cc Isovue 370 IV contrast. COMPARISON: CT abdomen and pelvis without contrast 07/23/2024. FINDINGS: Lower chest: Unremarkable. Liver: Few subcentimeter hypoattenuating foci too small to characterize. Gallbladder and bile ducts: Status post cholecystectomy. Mildly prominent extrahepatic and intrahepatic bile ducts likely secondary to post cholecystectomy reservoir effect. Pancreas: Unremarkable. Spleen: Unremarkable. Normal in size. No masses. Adrenal glands: Unremarkable. No nodules. Kidneys: Normal parenchymal enhancement. Probable left renal cortical cyst and additional subcentimeter hypodensities too small to characterize. Nonobstructing calculus in the left lower pole. GI tract: Tiny hiatal hernia. No evidence of bowel obstruction or inflammation. Normal appendix. Scattered colonic diverticula without acute diverticulitis. Vasculature: Abdominal aorta is normal in caliber. Mesenteric arteries are patent. Lymph nodes: No lymphadenopathy. Peritoneum/Abdominal Wall: Unremarkable. No free air or significant free fluid. Pelvis: Unremarkable. Status post hysterectomy. Bones: No acute or suspicious osseous abnormality. IMPRESSION: No acute findings identified within the abdomen or pelvis. Please note that all CT scans at this facility use dose modulation, iterative reconstruction, and/or weight-based dosing when appropriate to reduce radiation dose to as low as reasonably achievable. Dictated by Promise Bazzi MD @ 03/21/2025 12:26:40 PM (Electronically Signed)
== END 2025-03-21 13:30 | disposition home or self-care (01) ==
PROVIDERS: Emergency Provider Family Medicine
DX: R55 Syncope and collapse (principal); R74.01 Elevation of levels of liver transaminase levels; D69.6 Thrombocytopenia, unspecified
CPT/HCPCS: 36415; 70450; 70486; 71101; 71275; 72125; 74177; 80053; 82803; 83605; 83880; 84484; 85025; 85379; 86140; 93005; 94761; 96360; 96361; 99285; J7030; Q9967